=== PATIENT | male | born 1965 | race Caucasian/White ===

== ENCOUNTER 2020-02-23 11:12 | Outpatient (REF) | payer BC, SELFPAY ==
--- NOTE | 2020-02-23 11:20 | XR_ITS ---
EXAMINATION: XR FOOT, LEFT CLINICAL INFORMATION: Pain. COMPARISON: None TECHNIQUE: AP, lateral, and oblique views of the left foot. FINDINGS: No visible acute fracture or dislocation. Suspect anterior spurring of the distal tibia. Small ossification posterior to the talus, could represent an os trigonum versus a loose body. Tarsometatarsal alignment is within normal limits. Moderate Achilles tendon insertional enthesopathy. Small plantar calcaneal spur. Ossicle adjacent to the cuboid XR/XR foot LT min 3V IMPRESSION: No evidence of acute fracture. Degenerative changes, as detailed above.
[2020-02-23 14:08] LABS: Hemoglobin 15.7 g/dl (14.0-18.0)
[2020-02-23 15:29] LABS: Alanine Aminotransferase 52 U/L (0-40); Albumin Level 4.2 g/dL (3.5-5.0); Alkaline Phosphatase 62 U/L (39-117); Anion Gap 11 (12-20); Aspartate Amino Transferase 33 U/L (5-37); Bilirubin Total 1.4 mg/dL (0.0-1.0); Blood Urea Nitrogen 12 mg/dL (9-16); Calcium 8.6 mg/dL (8.4-10.2); Carbon Dioxide 28 mmol/L (22-29); Chloride 102 mmol/L (96-108); Cholesterol 204 mg/dL; Estimated Glomerular Filt Rate > 60; Glucose Fasting 89 mg/dL (60-99); HDL Cholesterol 29 mg/dL; LDL Cholesterol Calculated 124 mg/dl; Potassium 3.9 mmol/l (3.3-5.1); Sodium 137 mmol/L (135-145); Total Protein 7.1 g/dL (6.5-8.0); Triglycerides 257 mg/dL
[2020-02-23 15:31] LABS: Alanine Aminotransferase 52 U/L (0-40); Albumin Level 4.2 g/dL (3.5-5.0); Alkaline Phosphatase 61 U/L (39-117); Aspartate Amino Transferase 34 U/L (5-37); Bilirubin Direct 0.4 mg/dL (0.0-0.5); Bilirubin Total 1.3 mg/dL (0.0-1.0); Total Protein 7.1 g/dL (6.5-8.0)
[2020-02-23 15:56] LABS: TSH reflex Free T4 1.88 mIU/mL (0.32-4.0)
[2020-02-23 16:49] LABS: Prostate Specific Antigen Scr 0.59 ng/mL (<0.05-4.0)
[2020-02-25 03:26] LABS: Sex Hormone Binding Globulin 18 nmol/L (10-50)
[2020-02-25 21:22] LABS: Follicle Stimulating Hormone 5.4 mIU/mL (1.6-8.0); Lutenizing Hormone 4.7 mIU/mL (1.5-9.3)
[2020-02-29 19:08] LABS: Estrogen 237.9 pg/mL (60-190)
[2020-02-29 19:09] LABS: Testosterone, Free 35.4 pg/mL (35.0-155.0); Testosterone, Total 213 ng/dL (250-1100)
[2020-03-02 06:11] LABS: Testosterone-Albumin 4.1 g/dL (3.6-5.1); Testosterone-Bioavailable 57.3 ng/dL (110.0-575.0); Testosterone-Free 30.5 pg/mL (46.0-224.0); Testosterone-SHBG 17 nmol/L (10-50); Testosterone-Total 151 ng/dL (250-1100)
[2020-03-02 22:57] LABS: Estradiol Free 0.46 pg/mL; Estradiol, Ultrasensitive 20 pg/mL
== END 2020-02-23 11:13 | disposition home or self-care (01) ==
LOC: HO.HMGCLDS 11:12
PROVIDERS: Absent Provider Nurse Practitioner Family; PCP Nurse Practitioner Family; Visit Provider Internal Medicine Endocrinology, Diabetes & Metabolism
DX: E23.0 Hypopituitarism (principal); M79.672 Pain in left foot
CPT/HCPCS: 36415; 73630; 80053; 80061; 80076; 82248; 82670; 82672; 83001; 83002; 84153; 84270; 84402; 84403; 84443; 85014; 85018

== ENCOUNTER 2020-03-07 09:10 | Outpatient (REF) | payer BC, SELFPAY | END 2020-03-07 09:11 | disposition home or self-care (01) | LOC: HO.HMGCX 09:10 | PROVIDERS: PCP Nurse Practitioner Family; Visit Provider Nurse Practitioner Family | DX: Z13.89 Encounter for screening for other disorder (principal) ==

== ENCOUNTER → 2020-03-15 07:43 | Outpatient (BNVA) | payer BC, SELFPAY | PROVIDERS: PCP Nurse Practitioner Family; Visit Provider Internal Medicine Endocrinology, Diabetes & Metabolism | DX: Z13.89 Encounter for screening for other disorder (principal) ==

== ENCOUNTER 2020-03-18 06:03 | Outpatient (REF) | payer BC, SELFPAY ==
[2020-03-18 11:45] LABS: Blood Urea Nitrogen 14 mg/dL (9-16); Estimated Glomerular Filt Rate > 60
[2020-03-18 12:22] LABS: HBS Num1 1.71 mIU/mL (0-7.99); HBc Num1 0.08 S/CO (0.00-0.79); HBsAGNum1 0.32 S/CO (0.00-0.99); Hepatitis A Antibody IgM 0.24 Index (0-0.79); Hepatitis B Core Antibody Nonreactive (Nonreactive); Hepatitis B Surface Antigen Negative (Negative); ~HepC Num1 0.08 S/CO (0.00-0.79); ~Hepatitis A Antibody IgM Nonreactive (Nonreactive); ~Hepatitis B Surface Antibody NONREACTIVE (Nonreactive); ~Hepatitis C Antibody Nonreactive (Nonreactive)
[2020-03-25 22:27] LABS: Estradiol Free 0.41 pg/mL; Estradiol, Ultrasensitive 18 pg/mL
== END 2020-03-18 06:04 | disposition home or self-care (01) ==
LOC: HO.HMGCLDS 06:03
PROVIDERS: PCP Nurse Practitioner Family; Visit Provider Internal Medicine Endocrinology, Diabetes & Metabolism
DX: R74.8 Abnormal levels of other serum enzymes (principal); E23.0 Hypopituitarism
CPT/HCPCS: 82565; 82670; 82672; 84520; 86704; 86706; 86709; 86803; 87340

== ENCOUNTER 2020-03-21 07:50 | Outpatient (REF) | payer BC, SELFPAY ==
--- NOTE | 2020-03-21 07:49 | MR_ITS ---
EXAMINATION: MR BRAIN WITHOUT AND WITH CONTRAST CLINICAL INFORMATION: Follow-up questionable 6 mm pituitary adenoma. COMPARISON: MRI dated 06/25/2018. TECHNIQUE: Multiplanar, multisequential imaging was obtained without and with intravenous administration of contrast. Intravenous contrast: Gadavist 5 mL. FINDINGS: Appearance of the pituitary gland remains stable. Enhancing soft tissue in the posterior sella remains unchanged. The infundibulum is midline. The cavernous sinuses opacify symmetrically. The internal carotid artery flow voids are maintained. A small pineal cyst is stable. No diffusion abnormalities are identified to suggest an acute or subacute infarct. The ventricles are normal in size. No mass effect or midline shift is seen. A subcentimeter focus of signal change in the right parietal white No extra-axial fluid collections are noted. The brainstem and cerebellum are normal. On postcontrast imaging, there is no abnormal parenchymal or leptomeningeal enhancement. The craniovertebral junction, marrow signal, and midline structures are normal. The mastoid air cells and paranasal sinuses are well aerated. MR/MR head/brain wo/w con IMPRESSION: Stable appearance of the pituitary gland compared to previous imaging. It is indeterminate as to whether enhancing tissue posterior to what is perceived to represent the pituitary bright spot represents normal glandular tissue versus a microadenoma.
== END 2020-03-21 07:51 | disposition home or self-care (01) ==
LOC: HO.MRI 07:50
PROVIDERS: Visit Provider Internal Medicine Endocrinology, Diabetes & Metabolism
DX: E23.0 Hypopituitarism (principal)
CPT/HCPCS: 70553; A9585

== ENCOUNTER 2020-03-22 08:55 | Outpatient (REF) | payer BC, SELFPAY ==
--- NOTE | 2020-03-22 08:58 | US_ITS ---
EXAMINATION: US ABDOMEN COMPLETE CLINICAL INFORMATION: Abnormal levels of other serum enzymes. COMPARISON: None TECHNIQUE: Real-time imaging of the abdominal viscera. FINDINGS: PANCREAS: The head and the body of the pancreas are homogeneous in echotexture. The tail is obscured by overlying gas. ABDOMINAL AORTA: The proximal, mid, and distal segments are normal in caliber. INFERIOR VENA CAVA: Visualized portions are normal. LIVER: The liver has increased echogenicity. The liver is normal in size. The liver contour is normal. No focal hepatic lesion. There is no intrahepatic biliary duct dilatation seen. GALLBLADDER: The gallbladder is physiologically distended without evidence of stones, polyps, wall thickening or pericholecystic fluid. There is echogenic sludge noted. COMMON BILE DUCT: Normal in caliber measuring 0.23 cm in diameter. RIGHT KIDNEY: Normal. No hydronephrosis. No renal calculi or focal parenchymal lesions. The kidney measures 11.7 cm in maximum dimension. LEFT KIDNEY: Normal. No hydronephrosis. No renal calculi or focal parenchymal lesions. The kidney measures 12.0 cm in maximum dimension. SPLEEN: Normal. The spleen measures 11.9 cm in maximum dimension. FREE FLUID: None. US/US abdomen complete IMPRESSION: Hepatic steatosis without focal lesion. Echogenic gallbladder sludge. The rest of the abdominal ultrasound is unremarkable.
== END 2020-03-22 08:56 | disposition home or self-care (01) ==
LOC: HO.HMGCX 08:55
PROVIDERS: PCP Nurse Practitioner Family; Visit Provider Nurse Practitioner Family
DX: R74.8 Abnormal levels of other serum enzymes (principal)
CPT/HCPCS: 76700

== ENCOUNTER 2020-05-07 07:43 | Outpatient (REF) | payer BC, SELFPAY ==
[2020-05-07 08:58] LABS: Alanine Aminotransferase 34 U/L (0-40); Albumin Level 4.4 g/dL (3.5-5.0); Alkaline Phosphatase 59 U/L (39-117); Aspartate Amino Transferase 24 U/L (5-37); Bilirubin Direct 0.4 mg/dL (0.0-0.5); Bilirubin Total 1.3 mg/dL (0.0-1.0); Cholesterol 166 mg/dL; HDL Cholesterol 31 mg/dL; LDL Cholesterol Calculated 105 mg/dl; Triglycerides 152 mg/dL
[2020-05-07 09:03] LABS: Bilirubin Direct 0.4 mg/dL (0.0-0.5)
== END 2020-05-07 07:44 | disposition home or self-care (01) ==
LOC: HO.LAB 07:43
PROVIDERS: PCP Nurse Practitioner Family; Visit Provider Nurse Practitioner Family
DX: R17 Unspecified jaundice (principal); E78.5 Hyperlipidemia, unspecified
CPT/HCPCS: 36415; 80061; 80076; 82248

== ENCOUNTER → 2020-08-12 07:26 | Outpatient (BNVA) | payer BC, SELFPAY | PROVIDERS: PCP Nurse Practitioner Family; Visit Provider Internal Medicine Endocrinology, Diabetes & Metabolism ==

== ENCOUNTER 2020-08-12 07:57 | Outpatient (REF) | payer BC, SELFPAY ==
[2020-08-12 10:26] LABS: Hemoglobin 16.4 g/dl (14.0-18.0)
[2020-08-12 10:53] LABS: Cholesterol 185 mg/dL; HDL Cholesterol 28 mg/dL; LDL Cholesterol Calculated 125 mg/dl; Triglycerides 163 mg/dL
[2020-08-12 11:16] LABS: PSA,Total (Free>4and<10) 0.54 ng/mL (0.00-4.00)
[2020-08-13 05:36] LABS: Sex Hormone Binding Globulin 14 nmol/L (10-50)
[2020-08-17 19:31] LABS: Testosterone-Albumin 4.4 g/dL (3.6-5.1); Testosterone-Bioavailable 150.7 ng/dL (110.0-575.0); Testosterone-Free 74.9 pg/mL (46.0-224.0); Testosterone-SHBG 15 nmol/L (10-50); Testosterone-Total 329 ng/dL (250-1100)
[2020-08-23 15:47] LABS: Testosterone, Free 99.6 pg/mL (35.0-155.0); Testosterone, Total 431 ng/dL (250-1100)
== END 2020-08-12 07:58 | disposition home or self-care (01) ==
LOC: HO.10HDL 07:57
PROVIDERS: Visit Provider Internal Medicine Endocrinology, Diabetes & Metabolism
DX: E23.0 Hypopituitarism (principal)
CPT/HCPCS: 36415; 80061; 84153; 84270; 84402; 84403; 85014; 85018

== ENCOUNTER → 2021-07-06 09:59 | Outpatient (BNVA) | payer BC, SELFPAY | PROVIDERS: PCP Nurse Practitioner Family; Referring Provider Nurse Practitioner Family; Visit Provider Physician Assistant | DX: K52.9 Noninfective gastroenteritis and colitis, unspecified (principal); Z12.11 Encounter for screening for malignant neoplasm of colon; Z79.899 Other long term (current) drug therapy | CPT/HCPCS: 99202 ==

== ENCOUNTER 2021-07-28 06:22 | Outpatient (REF) | payer BC, SELFPAY ==
[2021-07-28 11:41] LABS: Appearance Urine CLEAR; Color Urine YELLOW; Glucose Urine UA NEG (NEG); Leukocyte Esterase Urine NEG (NEG); Nitrite Urine NEG (NEG); Urine Blood NEG (NEG); Urine Ketones NEG (NEG); Urine Protein NEG (NEG-TRACE)
[2021-07-28 11:53] LABS: Prostate Specific Antigen Scr 0.58 ng/mL (<0.05-4.0); TSH reflex Free T4 2.73 uIU/mL (0.32-4.0)
[2021-07-28 12:01] LABS: Alanine Aminotransferase 37 U/L (0-40); Albumin Level 3.9 g/dL (3.5-5.0); Alkaline Phosphatase 53 U/L (39-117); Anion Gap 10 (12-20); Aspartate Amino Transferase 25 U/L (5-37); Bilirubin Total 1.1 mg/dL (0.0-1.0); Blood Urea Nitrogen 13 mg/dL (9-16); C Reactive Protein 0.05 mg/dL (< or = 0.50); Calcium 8.9 mg/dL (8.4-10.2); Carbon Dioxide 27 mmol/L (22-29); Chloride 106 mmol/L (96-108); Cholesterol 223 mg/dL; Estimated Glomerular Filt Rate > 60; Glucose Fasting 107 mg/dL (60-99); HDL Cholesterol 29 mg/dL; LDL Cholesterol Calculated 139 mg/dl; Potassium 3.9 mmol/L (3.3-5.1); Sodium 139 mmol/L (135-145); Total Protein 6.9 g/dL (6.5-8.0); Triglycerides 275 mg/dL
[2021-07-28 12:07] LABS: Erythrocyte Sedimentation Rate 2 MM/HR (0-15)
== END 2021-07-28 06:23 | disposition home or self-care (01) ==
LOC: HO.HMGCLDS 06:22
PROVIDERS: PCP Nurse Practitioner Family; Visit Provider Physician Assistant
DX: Z00.00 Encounter for general adult medical examination without abnormal findings (principal); Z12.5 Encounter for screening for malignant neoplasm of prostate; K52.9 Noninfective gastroenteritis and colitis, unspecified
CPT/HCPCS: 36415; 80053; 80061; 81003; 84153; 84443; 85652; 86140

== ENCOUNTER 2021-10-06 06:10 | Outpatient (REF) | payer BC, SELFPAY ==
[2021-10-06 11:21] LABS: Hematocrit 47.6 % (42.0-52.0); Hemoglobin 15.6 g/dl (14.0-18.0)
[2021-10-06 11:44] LABS: Cholesterol 177 mg/dL; HDL Cholesterol 34 mg/dL; LDL Cholesterol Calculated 106 mg/dl; Triglycerides 189 mg/dL
[2021-10-06 11:54] LABS: Prostate Specific Antigen 0.53 ng/mL (<0.05-4.0)
[2021-10-12 21:27] LABS: Testosterone, Free 46.2 pg/mL (35.0-155.0); Testosterone, Total 231 ng/dL (250-1100)
== END 2021-10-06 06:11 | disposition home or self-care (01) ==
LOC: HO.HMGCLDS 06:10
PROVIDERS: PCP Nurse Practitioner Family; Visit Provider Internal Medicine Endocrinology, Diabetes & Metabolism
DX: E23.0 Hypopituitarism (principal); E78.1 Pure hyperglyceridemia; E78.5 Hyperlipidemia, unspecified; Z12.5 Encounter for screening for malignant neoplasm of prostate
CPT/HCPCS: 36415; 80061; 84153; 84402; 84403; 85014; 85018

== ENCOUNTER → 2022-04-02 09:08 | Outpatient (REF) | payer BC, SELFPAY | LOC: HO.SL 09:08 | PROVIDERS: PCP Nurse Practitioner Family; Visit Provider Nurse Practitioner Family | DX: G47.33 Obstructive sleep apnea (adult) (pediatric) (principal); R06.83 Snoring; G47.19 Other hypersomnia; I10 Essential (primary) hypertension | CPT/HCPCS: 95806 ==

== ENCOUNTER 2022-05-01 09:28 | Day surgery (SDC) | payer BC, SELFPAY ==
[2022-04-26 10:40] VITALS: BMI 33.1
--- NOTE | 2022-04-30 13:12 | HO.ANESPROP2 ---
Documented by User: Lyn Fulton NP 04/30/22 13:12 HPI - Anesthesia Eval Consult details Narrative: 57yo M for Colonoscopy PMFSH Active Problems Active Problems: All Active Problems (Updated 04/26/22 @ 10:36 by Faye Peter RN) Physical exam (Acute) Intractable left heel pain (Acute) Elevated bilirubin (Acute) Elevated liver enzymes (Acute) Screening for colon cancer (Acute) Screening PSA (prostate specific antigen) (Acute) Obesity (Acute) Snores (Acute) Excessive daytime sleepiness (Acute) Witnessed episode of apnea (Acute) Dyslipidemia (Acute) Colitis (Acute) HTN (hypertension) (Acute) Hypertriglyceridemia (Acute) Hypogonadotropic hypogonadism (Acute) Past Medical History Medical History Arthritis Colitis Diverticulitis Dyslipidemia Hemochromatosis History of deviated nasal septum HTN (hypertension) Hypertriglyceridemia Hypogonadotropic hypogonadism Infectious and parasitic disease Leukopenia Microhematuria Neutropenia Plantar fascial fibromatosis of left foot Sleep apnea Family History Family History Father Pneumonia Mother Lung cancer Sister Breast cancer Brother No problems noted. Son No problems noted. Son No problems noted. Surgical History Surgical History History of bowel resection History of circumcision Hx of colonoscopy Hx of vasectomy Social History Social History Housing: House Alcohol intake: current Alcohol intake frequency: does not drink Patient Tobacco Use Status: Never used Tobacco e-Cigarette/Vaping Use: Never Used Use of substances other than those prescribed or required for medical reasons: No Are you DNR?: No Advance Directives: No Advance Directives Information Provided: Yes service: No Current occupational status: employed Cognitive needs: No Hearing needs: No Vision needs: No Meds Allergies Allergy/AdvReac Type Severity Reaction Status Date / Time No Known Allergies Allergy Verified 03/06/22 15:08 Exam Exam Date and Time: April 30, 2022 1312 Height,Weight and Vital Signs: Height 6 ft 3 in Weight 120.202 kg Assessment and Plan Assessment Anesthesia Assessment: Chart Reviewed Documented by User: Sallie Shahid MD 05/01/22 11:15 PMF Active Problems Active Problems: All Active Problems (Updated 04/26/22 @ 10:36 by Faye Peter RN) Physical exam (Acute) Intractable left heel pain (Acute) Elevated bilirubin (Acute) Elevated liver enzymes (Acute) Screening for colon cancer (Acute) Screening PSA (prostate specific antigen) (Acute) Obesity (Acute) Snores (Acute) Excessive daytime sleepiness (Acute) Witnessed episode of apnea (Acute) Dyslipidemia (Acute) Colitis (Acute) HTN (hypertension) (Acute) Hypertriglyceridemia (Acute) Hypogonadotropic hypogonadism (Acute) DEVAN- just diagnosed. No CPAP yet Past Medical History Medical History Arthritis Colitis Diverticulitis Dyslipidemia Hemochromatosis History of deviated nasal septum HTN (hypertension) Hypertriglyceridemia Hypogonadotropic hypogonadism Infectious and parasitic disease Leukopenia Microhematuria Neutropenia Plantar fascial fibromatosis of left foot Sleep apnea Family History Family History Father Pneumonia Mother Lung cancer Sister Breast cancer Brother No problems noted. Son No problems noted. Son No problems noted. Family history of problems with anesthesia: No Surgical History Surgical History History of bowel resection History of circumcision Hx of colonoscopy Hx of vasectomy History of Problems with Anesthesia: No Social History Social History Housing: House Alcohol intake: current Alcohol intake frequency: does not drink Patient Tobacco Use Status: Never used Tobacco e-Cigarette/Vaping Use: Never Used Use of substances other than those prescribed or required for medical reasons: No Are you DNR?: No Advance Directives: No Advance Directives Information Provided: Yes service: No Current occupational status: employed Cognitive needs: No Hearing needs: No Vision needs: No Meds Allergies Allergy/AdvReac Type Severity Reaction Status Date / Time No Known Allergies Allergy Verified 03/06/22 15:08 Exam Height,Weight and Vital Signs: Height 6 ft 3 in Weight 120.202 kg Vital Signs Temp Pulse Resp BP Pulse Ox O2 Del Method 05/01/22 10:23 98.5 F 77 16 150/91 H 95 Room Air Airway Mallampati Class: II TM Dist: >3cm Neck ROM: Full Loose/Missing/Broken Teeth: No (Denies broken, loose, missing teeth) Heart: RRR Lungs: CTAB Assessment and Plan Assessment Anesthesia Assessment: Anesthesia Plan Discussed Final Anesthetic Review Family History of Problems with Anesthesia: No History of Problems with Anesthesia: No NPO: Yes ASA Class: III Final Preanesthetic Review: No Changes in Pt Med Stat, Meds/Allgs Chart Reviewed, Consent Obtained/Reviewed and Anes Risks/Benef Reviewed Patient Risk: Intermediate Procedure Risk: Low Assessment/Block/Sedation in SS: Assess/Block/Sedation-SS Anesthetic Plan Anesthetic Plan: MAC: Disposition: Standard PACU
[2022-05-01 10:23] VITALS: BP 150/91; PULSE 77; RESP 16; TEMP 36.9; O2SAT 95
[2022-05-01] MEDS: Lactated Ringers 1,000 ML 100 ML IVCONT (10:26)
--- NOTE | 2022-05-01 10:47 | MHC.SHP ---
Pre-Procedural Eval Section A Date of Service: 05/01/22 Section B Chief Complaint: screening Relevant Family History (Specify if Yes): No Relevant Social History: None Present Medications: see Short Stay Collaborative assessment Medical History: Significant History (Arthritis Colitis Colitis Diverticulitis Dyslipidemia Hemochromatosis History of deviated nasal septum HTN (hypertension) Hypertriglyceridemia Hypogonadism Hypogonadotropic hypogonadism Infectious and parasitic disease Leukopenia Microhematuria Neutropenia Plantar fascial fibromatosis of left foot) History of Previous Operations: Relevant previous surgery/procedure and date(s) (History of bowel resection History of circumcision Hx of colonoscopy) Allergies: Allergies Allergy/AdvReac Type Severity Reaction Status Date / Time No Known Allergies Allergy Verified 03/06/22 15:08 Review of Systems Sugical H&P ROS: Negative: Constitution, Cardiovascular, Respiratory, Neurological, Psychiatric, Hem-Onc, Allergic/Immunologic, Gastrointestinal, Genitourinary, Musculoskeletal, Integumentary, Endocrine and Eyes/Ears/Nose/Throat Exam Surgical H&P Exam: Normal: HEENT, Normal: Heart, Normal: Lungs, Normal: Extremities, Normal: Abdomen, Normal: Skin and Normal: Neurological Plan Diagnosis/Plan: Unchanged I have reviewed the history and physical and performed a pertinent physical examination on my patient. No changes have occurred unless specified. Time Spent With Patient Time: Total time managing care of this patient today ____ minutes.
--- NOTE | 2022-05-01 10:48 | W.PM.OPN ---
Operative Note Operative Note Date of Service: 05/01/22 Narrative: Operative Information Procedure Description: Colonoscopy Indication: screening Anesthesia: MAC COLONOSCOPY Instrument: Olympus variable stiffness adult scope 190L Colonoscopy Monitoring: Vital signs and clinical assessment, continuous EKG monitoring, Pulse oximetry, Carbon Dioxide monitoring and blood pressure monitoring were done throughout the procedure. Colon withdrawal time was 9 minutes. Procedure: The patient was placed in the left lateral decubitis position and pre-procedure medications were administered. After a digital rectal examination of the ano-rectum, the video colonoscope was inserted into the rectum and advanced through the colon to the cecum/TI. The colonoscope was slowly withdrawn in a retrograde panoramic fashion and the colon mucosa was carefully examined including a retroflexed view of the rectum. Findings and interventions are described below. Procedure Difficulty: easy Findings: Terminal Ileum-normal Cecum:normal Ascending Colon: normal Transverse Colon -normal Descending Colon:normal Sigmoid Colon: anastomosis noted, many wide mouthed and small diverticula seen Rectum: Retroflexion with small internal hemorrhoids, grade I Anorectum - normal Colon preparation: [place] Bowel Preparation Scale Right colon; 2 Transverse colon: 3 Left colon; 3 (0 = Unprepared colon segment with mucosa not seen due to solid stool that cannot be cleared. 1 = Portion of mucosa of the colon segment seen, but other areas of the colon segment not well seen due to staining, residual stool and/or opaque liquid. 2 = Minor amount of residual staining, small fragments of stool and/or opaque liquid, but mucosa of colon segment seen well. 3 = Entire mucosa of colon segment seen well with no residual staining, small fragments of stool or opaque liquid) Impression and Post Procedure Diagnosis: internal hemorrhoids diverticular disease Plan: High fiber diet leaflet Avoid straining at stool, epsom salts and sitz bath, anusol supps or cream Repeat Colonoscopy in 10 years or earlier if clinically indicated Above findings were reviewed with the patient and relevant handouts were provided if indicated.
[2022-05-01 11:19] VITALS: BP 132/84; PULSE 77; RESP 18; TEMP 36.7; O2SAT 98
[2022-05-01 11:34] VITALS: BP 145/94; PULSE 67; RESP 18; TEMP 36.7; O2SAT 95
== END 2022-05-01 12:15 | disposition home or self-care (01) ==
PROVIDERS: PCP Nurse Practitioner Family; Visit Provider Internal Medicine Gastroenterology
PROC: 0DJD8ZZ Inspection of Lower Intestinal Tract, Via Natural or Artificial Opening Endoscopic (ICD-10-PCS; CPT 45378; principal; 2022-05-01 10:50)
DX: Z12.11 Encounter for screening for malignant neoplasm of colon (principal); K57.30 Diverticulosis of large intestine without perforation or abscess without bleeding; K64.0 First degree hemorrhoids; Z87.19 Personal history of other diseases of the digestive system; Z90.49 Acquired absence of other specified parts of digestive tract; Z98.0 Intestinal bypass and anastomosis status; K52.9 Noninfective gastroenteritis and colitis, unspecified; D70.9 Neutropenia, unspecified; E83.119 Hemochromatosis, unspecified; G47.33 Obstructive sleep apnea (adult) (pediatric); I10 Essential (primary) hypertension; E78.1 Pure hyperglyceridemia; E78.5 Hyperlipidemia, unspecified; Z79.899 Other long term (current) drug therapy
CPT/HCPCS: 45378

== ENCOUNTER → 2022-05-31 07:30 | Outpatient (BNVA) | payer BC, SELFPAY | PROVIDERS: PCP Nurse Practitioner Family; Referring Provider Nurse Practitioner Family; Visit Provider Physician Assistant | DX: Z13.89 Encounter for screening for other disorder (principal) ==

== ENCOUNTER 2023-02-16 09:47 | Outpatient (REF) | payer BC, SELFPAY ==
[2023-02-16 10:00] LABS: MANUAL DIFF FLAG NO
[2023-02-16 11:13] LABS: Basophils Percent Auto 0.9 % (0-2); Eosinophils Absolute Auto 0.2 X10*3/uL (0.0-0.4); Eosinophils Percent Auto 4.2 % (0-4); Hematocrit 47.8 % (42.0-52.0); Hemoglobin 16.1 g/dl (14.0-18.0); Imm Gran Abs Auto 0.02 X10*3/uL (0.00-0.03); Imm Gran Pct Auto 0.4 % (0.0-0.4); Lymphocytes Absolute Auto 1.6 X10*3/uL (1.2-4.9); Lymphocytes Percent Auto 35.5 % (20-40); Mean Corpuscular HGB Conc 33.7 g/dl (31.0-36.0); Mean Corpuscular Volume 91.9 fL (80.0-98.0); Mean Platelet Volume 9.2 fL (9.4-12.4); Monocytes Absolute Auto 0.5 X10*3/uL (0.1-1.2); Monocytes Percent Auto 10.8 % (2-11); Neutrophils Absolute Auto 2.2 x10*3/uL (2.0-8.3); Neutrophils Percent Auto 48.2 % (45-73); Platelet Count 264 X10*3/uL (160-400); Red Cell Distribution Width 11.9 % (11.0-16.0); White Blood Count 4.5 X10*3/uL (4.8-10.8)
[2023-02-16 11:19] LABS: Appearance Urine Clear; Color Urine Yellow; Glucose Urine UA Negative (Negative); Leukocyte Esterase Urine Negative (Negative); Nitrite Urine Negative (Negative); PH 6.5 (5.0-9.0); Urine Blood Negative (Negative); Urine Ketones Negative (Negative); Urine Protein Negative (Neg-Trace)
[2023-02-16 12:05] LABS: Alanine Aminotransferase 36 U/L (0-40); Albumin Level 4.1 g/dL (3.5-5.0); Alkaline Phosphatase 55 U/L (39-117); Anion Gap 11 (12-20); Aspartate Amino Transferase 28 U/L (5-37); Bilirubin Total 1.7 mg/dL (0.0-1.0); Blood Urea Nitrogen 14 mg/dL (9-16); Carbon Dioxide 29 mmol/L (22-29); Chloride 104 mmol/L (96-108); Cholesterol 168 mg/dL (<200); Estimated Glomerular Filt Rate > 60; Glucose Fasting 81 mg/dL (60-99); HDL Cholesterol 31 mg/dL (>40); LDL Cholesterol Calculated 98 mg/dL (<100); Potassium 3.5 mmol/L (3.3-5.1); Sodium 140 mmol/L (135-145); Total Protein 7.1 g/dL (6.5-8.0); Triglycerides 196 mg/dL (<150)
[2023-02-16 12:12] LABS: Prostate Specific Antigen 0.58 ng/mL (<0.05-4.0); TSH reflex Free T4 1.41 uIU/mL (0.32-4.0)
== END 2023-02-16 09:48 | disposition home or self-care (01) ==
LOC: HO.LAB 09:47
PROVIDERS: PCP Nurse Practitioner Family; Visit Provider Nurse Practitioner Family
DX: Z12.5 Encounter for screening for malignant neoplasm of prostate (principal); E78.5 Hyperlipidemia, unspecified; R74.8 Abnormal levels of other serum enzymes; R17 Unspecified jaundice; I10 Essential (primary) hypertension; E78.1 Pure hyperglyceridemia; E23.0 Hypopituitarism
CPT/HCPCS: 36415; 80053; 80061; 81003; 84153; 84443; 85025

== ENCOUNTER 2023-02-19 14:00 | Outpatient (AMB) | payer BC, SELFPAY ==
--- NOTE | 2023-02-19 14:03 | A.OFFVIS_ITS ---
Intake Vital Signs 02/19/23 14:05 Weight 277 lb BP 126/88 Blood Pressure Location Lt brachial Position Sitting Pulse 76 Pulse Source Pulse Oximeter Pulse Oximetry (%) 97 Oxygen Delivery Method Room Air Intake Visit Reasons: Hypertension Allergies No Known Allergies Allergy (Verified 02/19/23 15:18) Medication List - Last Reconciled 02/19/23 by ANNMARIE Sapp-MARSHAL lisinopril 40 mg PO DAILY 90 days omega-3 fatty acids 1,000 mg PO BID 30 days rosuvastatin 20 mg PO DAILY 90 days safety needles (BD Eclipse Luer-Fabiana) As directed sildenafil 50 mg PO DAILY PRN 30 days syringe with needle, safety (BD Integra Syringe) As directed Do you need a note to return to daycare/school/sports/work: No HPI Hypertension HPI Details HTN: Blood pressure is stable, managed with lisinopril 40mg. Denies chest pain, shortness of breath, headache, dizziness, and blurred vision. Pt's bilirubin was noted to be elevated. Denies any abdominal or N/V. Will repeat labs. Hx of hemochromatosis, will repeat labs. 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 Son No problems noted. Son No problems noted. Social History Housing: House Alcohol intake: current Alcohol intake frequency: does not drink Patient Tobacco Use Status: Never used Tobacco e-Cigarette/Vaping Use: Never Used service: No Current occupational status: employed Cognitive needs: No Hearing needs: No Vision needs: No Review of Systems Const Reports as per HPI Physical Exam Vital Signs: Last Vital Signs Pulse 76 11/07/23 14:05 BP 126/88 02/19/23 14:05 Pulse Ox 97 02/19/23 14:05 Oxygen Delivery Method Room Air 02/19/23 14:05 Const General: cooperative Orientation/consciousness: patient oriented x3 Neuro General: patient oriented x3 Psych Appearance: grossly normal Mental Status: mental status grossly normal Speech and movement: Normal speech and movement present Affect: normal affect Attitude: cooperative Thought process: Normal thought process present Thought content: Normal thought content present Insight: Good insight present (Psych) Judgement: Good judgement present (Psych) Assessment & Plan Assessment & Plan (1) Elevated bilirubin: Code(s): R17 - Unspecified jaundice Plan: repeat (2) HTN (hypertension): Code(s): I10 - Essential (primary) hypertension Plan: take BP at home (3) Hemochromatosis: Code(s): E83.119 - Hemochromatosis, unspecified Plan: labs Plan The patient agreed to the use of a medical records director for this encounter. Scribed for JOHANA Holland by clemencia Escobar scribe, on 02/19/2023 at 14:25 EST. Orders: Orders Bilirubin Direct Today R17 - Unspecified jaundice Bilirubin Total Today R17 - Unspecified jaundice Ferritin Today E83.119 - Hemochromatosis, unspecified IRON PROFILE Today E83.119 - Hemochromatosis, unspecified Medications: Refilled sildenafil administer 30 minutes to 4 hours before activity 50 mg PO DAILY 30 days PRN 30 tabs 4RF sexual activity Coding Level of Care Code Est Pt Level 3 (00959) Diagnoses Elevated bilirubin R17 HTN (hypertension) I10 Hemochromatosis E83.119
[2023-02-19 14:05] VITALS: BP 126/88; PULSE 76; O2SAT 97
== END 2023-02-19 17:01 | disposition home or self-care (01) ==
PROVIDERS: PCP Nurse Practitioner Family; Visit Provider Nurse Practitioner Family
DX: R17 Unspecified jaundice (principal); I10 Essential (primary) hypertension; E83.119 Hemochromatosis, unspecified
CPT/HCPCS: 99213

== ENCOUNTER 2023-03-02 10:44 | Outpatient (REF) | payer BC, SELFPAY ==
[2023-03-02 11:52] LABS: Bilirubin Direct 0.3 mg/dL (0.0-0.5); Bilirubin Total 1.2 mg/dL (0.0-1.0); Iron 136 mcg/dL (45-160); Percent Iron Saturation 47 % (15-50); Total Iron Binding Capacity 290 mcg/dL (228-428); Unsaturated Iron Binding 154 ug/dL
[2023-03-02 11:56] LABS: Ferritin 271 ng/mL (20-250)
== END 2023-03-02 10:45 | disposition home or self-care (01) ==
LOC: HO.LAB 10:44
PROVIDERS: PCP Nurse Practitioner Family; Visit Provider Nurse Practitioner Family
DX: R17 Unspecified jaundice (principal); E83.119 Hemochromatosis, unspecified
CPT/HCPCS: 36415; 82247; 82248; 82728; 83540

== ENCOUNTER 2023-07-01 13:34 | Outpatient (AMB) | payer BC, SELFPAY ==
[2023-07-01 13:36] VITALS: BP 138/80; PULSE 80; O2SAT 98; BMI 35.6
--- NOTE | 2023-07-01 13:36 | A.OFFPC_ITS ---
Vital Signs 07/01/23 13:36 Height 6 ft 3 in Weight 285 lb BMI 35.6 BP 138/80 Blood Pressure Location Lt brachial Position Sitting Pulse 80 Pulse Source Pulse Oximeter Pulse Oximetry (%) 98 Oxygen Delivery Method Room Air Intake Visit Reasons: Annual PE/Overdue last PE 2021 Intake Note: pt is here for annual exam Data Architect Required: No Accompanied by: Self / Same As Patient Allergies No Known Allergies Allergy (Verified 07/01/23 13:36) Tobacco use date assessed: 07/01/23 Dental Screening Dental Screen Date: 07/01/23 Did you have a dental visit in the last 12 months?: Yes Did you have a dental problem in the last 6 months where you did not have access to dental care?: No Was dental information given to patient?: Patient has dentist HPI Annual PE/Overdue last PE 2021 HPI Details Pt is here for a PE. Labs have already been ordered, encouraged pt to have these drawn. Colon screen is up to date. PSA is up to date. Denies dribbling with urination, weak stream, and frequent nocturia. 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 Son No problems noted. Son No problems noted. Social History Housing: House Alcohol intake: current Alcohol intake frequency: does not drink Patient Tobacco Use Status: Never used Tobacco e-Cigarette/Vaping Use: Never Used service: No Current occupational status: employed Cognitive needs: No Hearing needs: No Vision needs: No Questionnaire Thrive Questionnaire Date Thrive assessed: 06/12/21 AUDIT C Alcohol Use Questionnaire (AUDIT-C) 1. How often do you have a drink containing alcohol?: Monthly or less 2. How many drinks containing alcohol do you have on a typical day when you are drinking?: 1 or 2 3. How often do you have six or more drinks on one occasion?: Never Total Score: 1 Score Reviewed/Action Taken: No JG-7 AMB Questionnaire JG-7 Date JG - 7 assessed: 06/12/21 Source: Developed by Drs. Maynor Lee, Josi Joy, Carl Tobin and colleagues, with an educational jessica from [employer]. Review of Systems Const Denies chills and Denies fever(s) Eyes Denies blurry vision ENT Denies vertigo, Denies dizziness and Denies sore throat Card Denies chest pain at rest, Denies chest pain with activity, Denies diaphoresis, Denies dyspnea and Denies dyspnea on exertion Resp Denies cough, Denies dyspnea, Denies dyspnea on exertion and Denies wheezing GI Denies abdominal pain, Denies melena, Denies hematochezia, Denies constipation, Denies diarrhea and Denies loose stools Denies hematuria Musc Denies numbness and Denies tingling Skin/Breast Denies lesions Neuro Denies vertigo, Denies dizziness, Denies numbness and Denies tingling Psych Denies anxiety, Denies depression, Denies homicidal ideation, Denies suicidal ideation and Denies other (substance abuse) Aller/Immun Denies wheezing Physical exam (Primary Care) Vital Signs: Last Vital Signs Pulse 80 07/01/23 13:36 BP 138/80 07/01/23 13:36 Pulse Ox 98 07/01/23 13:36 Oxygen Delivery Method Room Air 07/01/23 13:36 BMI result Body Mass Index 35.6 Tobacco/Smoking Status: Tobacco use Status Tobacco use date assessed 07/01/23 07/01/23 13:37 Patient Tobacco Use Status Never used Tobacco 07/01/23 13:37 e-Cigarette/Vaping Use Never Used 07/01/23 13:37 Thrive Assessment: Date of Thrive Assessment Date Thrive assessed 06/12/21 07/01/23 13:37 Const General: cooperative Nutritional Appearance: obese Orientation/consciousness: patient oriented x3 HENMT Head: Yes normal to inspection, Yes normocephalic and Yes atraumatic Ears: TM's normal bilaterally Eyes General: appearance normal, both eyes and all related structures Alignment and Position: alignment normal and position normal Neck Neck: Yes normal visual inspection and Yes no lymphadenopathy Thyroid: Thyroid normal Resp Effort & Inspection: normal respiratory effort Auscultation: clear to auscultation bilaterally Cardio Rate: regular rate Rhythm: regular rhythm Heart sounds: S1 normal heart sound present, S2 normal heart sound present and no murmurs GI Palpation (GI): Soft to palpation and nontender Auscultation: normal bowel sounds Male General Exam: Yes normal external exam Penis: normal penis Scrotum: scrotum normal, testes descended bilaterally and no inguinal hernias Testes: no testicular mass Skin Rashes: no rashes Neuro General: patient oriented x3, moves all extremities, no focal motor deficits and deep tendon reflexes 2+ bilaterally Romberg Test: Negative Psych Appearance: grossly normal Mental Status: mental status grossly normal Speech and movement: Normal speech and movement present Affect: normal affect Attitude: cooperative Thought process: Normal thought process present Thought content: Normal thought content present Insight: Good insight present (Psych) Judgement: Good judgement present (Psych) Assessment and Plan Assessment & Plan (1) Physical exam: Code(s): Z. - Encounter for general adult medical examination without abnormal findings Plan: previous labs were ordered as well, pt instructed to get all labs that were ordered (remind the sanitation laborer) Plan The patient agreed to the use of a electromedical service engineer for this encounter. Scribed for JOHANA Holland by Yancy Oquendo electromedical service engineer, on 07/01/2023 at 13:45 EST. Orders: Orders UA CC w/rflx Micro + Cult Today Z00. - Encounter for general adult medical examination without abnormal findings Lipid Panel Today Z00. - Encounter for general adult medical examination without abnormal findings TSH reflex Free T4 Today Z00. - Encounter for general adult medical ex amination without abnormal findings Coding Level of Care Code Est Pt Prev Care 40-64y(41488) Diagnoses Physical exam Z00.
== END 2023-07-01 16:34 | disposition home or self-care (01) ==
PROVIDERS: PCP Nurse Practitioner Family; Visit Provider Nurse Practitioner Family
DX: Z00.00 Encounter for general adult medical examination without abnormal findings (principal)
CPT/HCPCS: 99396

== ENCOUNTER 2023-07-18 15:36 | Outpatient (REF) | payer BC, SELFPAY ==
[2023-07-18 15:46] LABS: MANUAL DIFF FLAG NO
[2023-07-18 16:30] LABS: Basophils Absolute Auto 0.1 X10*3/uL (0.0-0.2); Basophils Percent Auto 1.1 % (0-2); Eosinophils Absolute Auto 0.2 X10*3/uL (0.0-0.4); Eosinophils Percent Auto 3.8 % (0-4); Hemoglobin 15.9 g/dl (14.0-18.0); Imm Gran Abs Auto 0.01 X10*3/uL (0.00-0.03); Imm Gran Pct Auto 0.2 % (0.0-0.4); Lymphocytes Absolute Auto 1.7 X10*3/uL (1.2-4.9); Lymphocytes Percent Auto 35.1 % (20-40); Mean Corpuscular HGB Conc 33.1 g/dl (31.0-36.0); Mean Corpuscular Hemoglobin 31.1 pg (27.0-33.0); Mean Corpuscular Volume 93.9 fL (80.0-98.0); Mean Platelet Volume 8.8 fL (9.4-12.4); Monocytes Absolute Auto 0.5 X10*3/uL (0.1-1.2); Monocytes Percent Auto 10.7 % (2-11); Neutrophils Absolute Auto 2.3 x10*3/uL (2.0-8.3); Neutrophils Percent Auto 49.1 % (45-73); Platelet Count 260 X10*3/uL (160-400); Red Blood Count 5.11 X10*6/uL (4.60-5.80); White Blood Count 4.8 X10*3/uL (4.8-10.8)
[2023-07-18 16:31] LABS: Appearance Urine Clear; Color Urine Yellow; Glucose Urine UA Negative (Negative); Leukocyte Esterase Urine Negative (Negative); Nitrite Urine Negative (Negative); UMIC TRIGGER UACC YES; Urine Blood Negative (Negative); Urine Ketones Negative (Negative); Urine Protein 30 (1+) mg/dL (Neg-Trace)
[2023-07-18 16:46] LABS: Bacteria Urine None Seen (None Seen); Hyaline Casts Urine 0-2 /LPF (0-2); RBC Urine 0-2 /HPF (0-2); Squamous Epithelial Cell Urine 0-2 /HPF (0-2); WBC Urine 0-5 /HPF (0-5)
[2023-07-18 17:18] LABS: Alanine Aminotransferase 46 U/L (0-40); Albumin Level 4.3 g/dL (3.5-5.0); Alkaline Phosphatase 58 U/L (39-117); Anion Gap 9 (12-20); Aspartate Amino Transferase 28 U/L (5-37); Bilirubin Total 1.2 mg/dL (0.0-1.0); Blood Urea Nitrogen 12 mg/dL (9-16); Calcium 9.3 mg/dL (8.4-10.2); Carbon Dioxide 30 mmol/L (22-29); Chloride 104 mmol/L (96-108); Cholesterol 165 mg/dL (<200); Estimated Glomerular Filt Rate > 60; Glucose Random 81 mg/dL (60-115); HDL Cholesterol 31 mg/dL (>40); Iron 116 mcg/dL (45-160); LDL Cholesterol Calculated 78 mg/dL (<100); Percent Iron Saturation 38 % (15-50); Potassium 3.8 mmol/L (3.3-5.1); Sodium 139 mmol/L (135-145); Total Iron Binding Capacity 308 mcg/dL (228-428); Total Protein 7.5 g/dL (6.5-8.0); Triglycerides 283 mg/dL (<150); Unsaturated Iron Binding 192 ug/dL
[2023-07-18 17:39] LABS: Ferritin 348 ng/mL (20-250); TSH reflex Free T4 1.88 uIU/mL (0.32-4.0)
== END 2023-07-18 15:37 | disposition home or self-care (01) ==
LOC: HO.LAB 15:36
PROVIDERS: PCP Nurse Practitioner Family; Visit Provider Nurse Practitioner Family
DX: Z00.00 Encounter for general adult medical examination without abnormal findings (principal); Z13.6 Encounter for screening for cardiovascular disorders; E83.119 Hemochromatosis, unspecified
CPT/HCPCS: 36415; 80053; 80061; 81001; 82728; 83540; 84443; 85025

== ENCOUNTER 2024-04-14 08:07 | Outpatient (AMB) | payer BC, SELFPAY ==
--- OUTSIDE RECORDS SUMMARY | 2024-04-14 08:10 | XMS_ITS ---
Author Organization [facility] Address [address] [place] [address] Care Team Providers Care Hydrate Control Tender Name Role Phone Ignacio Padilla Primary Care Provider Unav ailable Josh iBllings Unavailable [phone] REASON FOR VISIT cx appt 04/19/23 Encounters Encounter Location Date Provider Diagnosis [facility] [address] [place] [address] 04/17/2023 Josh Billings Plan Of Treatment No Information Progress Notes * Cole LANZADOB:[birth year] (58 yo M)Acc No.[id number]:04/17/2023 Patient:?Cole Lanza :1965???Age:58 Y???Sex:Male Address: [address] [facility] [place] [place], [address] * true * Date:? Generated for Printi ng/Faayannag/eTransmitting on:?04/14/2024 08:09 AM EST
--- OUTSIDE RECORDS SUMMARY | 2024-04-14 08:10 | XMS_ITS ---
Author Organization [facility] Address [address] [place] [address] Care Team Providers Care Metal Organ Pipe Maker Name Role Phone Ignacio Padilla Primary Care Provider Unav ailable Josh Billings Unavailable [phone] Allergies No Known Allergies REASON FOR VISIT Heel pain Medications Medication SIG (Take, Route, Frequency, Duration) Notes Start Date End Date Status Lisinopril 40 MG 1 tablet Orally Once a day for 30 day(s) Not-Taking Pravastatin Sodium 40 MG 1 tablet Orally Once a day for 30 day(s) Not-Taking Rosuvastatin Calcium Active Lisinopril 40 MG 1 tablet Orally Once a day for 30 day(s) Active Pravastatin Sodium 40 MG 1 tablet Orally Once a day for 30 day(s) Not-Taking Social History Tobacco Use: Social History Observation Description Date Details (start date - stop date) Never Smoker NA - NA Tobacco Use/Smoking Question Answer Notes Are you a: nonsmoker Additional Findings: Tobacco Non-User Current no n-smoker Alcohol Screen Question Answer Notes Did you have a drink contain ing alcohol in the past year? Yes How often did you have a dri nk containing alcohol in the past year? 2 to 4 times a month (2 points) Points 2 Interpretation Negative Tobacco use other than smoking: Question Answer Notes Are you an other tobacco user? No Vital Signs Height 6ft 3in in 03/22/2023 Weight 260 lbs 03/22/2023 BMI 32.49 kg/m2 03/22/2023 Procedures Procedure Date Ordered Date Performed Result Body Sit e ,[id number] TENDON SHEATH/LIGAMENT 03/22/2023 N/A Encounters Encounter Location Date Provider Diagnosis [facility] [address] [address] 03/22/2023 Josh Awa Plantar fasciitis M72.2 Assessments Encounter Date Diagnosis (ICD Code) Assessment Notes Treatment Notes Treatment Clinical Notes Section Notes 03/22/2023 Plantar fasciitis (ICD-10 - M72.2) Resistant to previous conservative treatment Patient Educated with: RICE THERAPY.pdf (RICE THERAPY.pdf) Patient Educated with: INJECTIONTHERA PY.pdf (INJECTIONTHER APY.pdf) Plan Of Treatment Treatment Notes Assessment Notes Plantar fasciitis Patient Educated wit h: RICE THERAPY.pdf (RICE THERAPY.pdf) Patient Educated with: INJECTIONTHERAPY.pdf (INJECTIONTHERAPY.pdf) Pending Test Test Name Order Date ,[id number] TENDON SHEATH/LIGAMENT 1 05/23/2022 Next Appt Details Follow Up: prn, Reason: Procedure Notes * Category Sub-Category Detail Notes Injection Tendon Sheath or Fascia , J 701 Injection 1 LEFT foot, - Plantar Fascia w/ mixture of Celestone Soluspan 3mg and 1cc 1 percent Xylocaine Plain anes. utilizing aseptic technique. The patient tolerated the procedure well. A dry sterile dressing was applied. Post injection instructions were dispensed, verbally discussed, and confirmed understood by the patient. I explained that a steroid and local anesthetic injections are administered to relieve pain and inflammation and thereby meant to improve function. I explained the possible complications including but not limited to signs/symptoms of steroid flare, infection, bruising, atrophy, discoloration of skin, change/deviation in toe position, and that additional injections may be necessary, Patient relates post-procedural pain assessment improved at ( 0-1) out of 10 Progress Notes * Cole LANZADOB:[birth year] (58 yo M)Acc No.[id number]:03/22/2023 Progress Notes Patient:?Kristian Lanzanemo Provider:?Josh Billings DPM :1965???Age:58 Y???Sex:Male Tramaine e:03/22/2023 Address:[address] [place] [address], [phone] Pcp:ELVER Holland Subjective: * Chief Complaints: * ???Heel pain * HPI: ???Heel pain:?Location:?Proximal plantar aspect of Heel, LEFT.?Treatments:?rest/alter normal daily activity, medication ( Voltaren gel, Icy hot spray) , stretching, massage, AFO-nightsplint, Pre-destin orthoses.?Severity/Quality:?Pre-injection procedure pain assessment - ( 8-9) out of 10.?Misc:?Patient states previous conservative therapy has not provided acceptable relief. Despite previous treatments/efforts, patient continues to relate substantial pain and significant functional disability during activity.? * ROS:?General/Constitutional:?Nausea?denies.?Vomiting?denies.?Hunger Thirst?denies.?Loss appetite?denies.?Chills?denies.?Fatigue?denies.?Fever?denies.?Night Sweats?denies.?Unexplained weight loss?denies.?Unexplained weight gain?denies.?HEENTM:?Dentures?denies.?Dizziness?denies.?Glasses/contacts?admits.?Retinopathy?de nies.?Blurred/double vision?denies.?TMJ?denies.?Discharge/drainage?denies.?Implants?denies.?Sore throat?denies.?Dental implants?denies.?Hard of hearing ?denies.?Difficulty chewing/swallowing/speaking?denies.?Nose bleeds?denies.?Sore mouth?denies.?Respiratory:?On Oxygen?denies.?Pneumonia/pleurisy?denies.?Bronchitis?denies.?Emphysema?denies.?C oughing?denies.?Cough blood?denies.?Shortness of breath?denies.?Wheezing?denies.?Cardiovascular:?Pacemaker?denies.?MVP?denies.?WPW?denies.?CHF?denies.?Heart attack?denies.?Septal defect?denies.?Rapid beat?denies.?Chest pain ?denies.?Atrial Fib.?denies.?Murmur/Palpitations?denies.?Gastrointestinal:?Hemorrhoids?denies.?Stomach/Abdominal pain?denies.?Dark blood stool?denies.?Irritable bowel ?denies.?Constipation?denies.?Diarrhea?denies.?Hematology:?Swelling?denies.?Clots?denies.?Varicose Veins?denies.?Bruising?denies.?Bleeding problem?denies.?Genitourinary:?Blood urine?denies.?Frequent/Painfu/urination/bladder control?denies.?Kidney stones?denies.?Infection (UTI)?denies.?Nephropathy?denies.?sex trans dis (STD)?denies.?Prostate?denies.?Musculoskeletal:?Hammertoes?denies.?Bunions?denies.?Back Pain?denies.?Muscle Cramps/ Resting?denies.?Muscle cramps / walking?denies.?Generalized aches and pains?denies.?Weakness?denies.?Integ.:?Jaramillo?denies.?Scars?denies.?Corns/calluses?denies.?Ingrown nails?denies.?Painful nails?denies.?Open Sores?denies.?Rashes?denies.?Neurologic:?Difficulty sleeping?denies.?Brain disorder?denies.?Numbness?denies.?Balance trouble?denies.?Confusion?denies.?Fainting/blackouts?denies.?Tingling?denies.?Tr emors?denies.? * Medical History:? * Surgical History:?bowel rese ction * Hospitalization/Major Diagno stic Procedure:?Denies Past Hospitalization * Family History:?Mother: dece ased, diagnosed with Other malignant neoplasm of unspecified site.?Father: .?Siblings: diagnosed with Other malignant neoplasm of unspecified site.? * Social History:?Tobacco Use:?Tobacco Use/Smoking?Are you a:?nonsmoker ?Additional Findings: Tobacco Non-User?Current non-smoker ?Tobacco use other than smoking?Are you an other tobacco user??No ???Drugs/Alcohol:?Drugs?Have you used drugs other than those for medical reasons in the past 12 months??No ?Alcohol Screen?Did you have a drink containing alcohol in the past year??Yes ?How often did you have a drink containing alcohol in the past year??2 to 4 times a month (2 points) ?Points?2 ?Interpretation?Negative ???Miscellaneous:?Caffeine: yes, 2-3 cups per day. ?Children: yes, 2. ?Exercise: yes, weight lifting. ?Marital status: . 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 * Medications:?TakingRosuvasta tin Calcium Lisinopril 40 MG Tablet 1 tablet Orally Once a dayTaking Rosuvastatin Calcium Taking Lisinopril 40 MG Tablet 1 tablet Orally Once a dayNot-Taking/PRNPravastatin Sodium 40 MG Tablet 1 tablet Orally Once a dayLisinopril 40 MG Tablet 1 tablet Orally Once a dayPravastatin Sodium 40 MG Tablet 1 tablet Orally Once a dayMedication List reviewed and reconciled with the patientNot-Taking/PRN Pravastatin Sodium 40 MG Tablet 1 tablet Orally Once a dayNot-Taking/PRN Lisinopril 40 MG Tablet 1 tablet Orally Once a dayNot- Taking/PRN Pravastatin Sodium 40 MG Tablet 1 tablet Orally Once a dayMedication List reviewed and reconciled with the patient * Allergies:?N.K.D.A.yes[Aller gies Verified] Objective: * Vitals:?Ht: 6ft 3in, Wt:260, BMI:32.49, Shoe size: 11.5, Ht-cm: 190.5 cm, Wt-k.93 kg. * Examination: ???Heel Pain: ?INSPECTION:? Pain on Palpation to Plantar Fascia med. and central bands, intrinsic musc., infra-calcaneal bursa, and med calc tubercle , LEFT foot, No pain: posterior/superior heel, achilles bursa/tendon, sinus tarsi, peroneals, or with lateral heel compression; no limited STJ ROM, calor, or ecchymosis.? Assessment: * Assessment: 1.?Plantar fasciitis - M72.2 (Primary), LEFT, Resistant to previous conservative treatment? Plan: * Treatment: * Procedures:?Injection:?Tendon Sheath or Fascia?78970, J0702 Injection 1 LEFT foot, - Plantar Fascia w/ mixture of Celestone Soluspan 3mg and 1cc 1 percent Xylocaine Plain anes. utilizing aseptic technique. The patient tolerated the procedure well. A dry sterile dressing was applied. Post injection instructions were dispensed, verbally discussed, and confirmed understood by the patient. I explained that a steroid and local anesthetic injections are administered to relieve pain and inflammation and thereby meant to improve function. I explained the possible complications including but not limited to signs/symptoms of steroid flare, infection, bruising, atrophy, discoloration of skin, change/deviation in toe position, and that additional injections may be necessary, Patient relates post-procedural pain assessment improved at ( 0-1) out of 10.? * Procedure Codes:?89606 INJ T ENDON SHEATH/LIGAMENT, Modifiers: LT J0702 INJ BETAMETHSN ACTAT&SOD PHOSPH-3MG * Preventive Medicine:? ??Counseling:?P.R.I.C.E.:?The patient was counseled on the use of P.R.I.C.E. and NSAIDS (if well tolerated) to aid in the recovery from their painful condition.?Steriod Injection:?I explained that a steroid and local anesthetic injections are administered to relieve pain and inflammation and thereby meant to improve function. I explained the possible complications including but not limited to signs/symptoms of steroid flare, infection, bruising, atrophy, discoloration of skin, change/deviation in toe position, and that additional injections may be necessary, cortisone post-injection informative educational handout was dispensed to and reviewed with the patient.? * Follow Up:?prn * Images: * Sign off status: Completed true * Provider:?Josh Billings DPM Date:?2022 Generated for Derik toro/Perez/Олег on:?04/14/2024 08:10 AM EST History and Physical Notes * HPI (History of Present Illness) Category Sub-Category Detail Notes Category Not es Heel pain Severity/Quality: Pre-injection procedure pain assessment - ( 8-9) out of 10 Location: Proximal plantar asp ect of Heel, LEFT Treatments: rest/alter normal da javed activity, medication ( Voltaren gel, Icy hot spray) , stretching, massage, AFO-nightsplint, Pre-destin orthoses Misc: Patient states previ ous conservative therapy has not provided acceptable relief. Despite previous treatments/efforts, patient continues to relate substantial pain and significant functional disability during activity Examination Category Sub-Category Detail Notes Category Not es Heel Pain INSPECTION: Pain on Palpatio n to Plantar Fascia med. and central bands, intrinsic musc., infra-calcaneal bursa, and med calc tubercle , LEFT foot, No pain: posterior/superior heel, achilles bursa/tendon, sinus tarsi, peroneals, or with lateral heel compression; no limited STJ ROM, calor, or ecchymosis
--- OUTSIDE RECORDS SUMMARY | 2024-04-14 08:10 | XMS_ITS | Patient Health Record ---
[facility] Address [address] [place] [address] Care Team Providers Care Water/Wastewater Engineer Name Role Phone Ignacio Padilla Primary Care Provider Unav ailable Josh Billings Unavailable [phone] Allergies No Known Allergies Reason For Referral No Information Medications Medication SIG (Take, Route, Frequency, Duration) [...] Are you an other tobacco user? No Problems Problem Type SNOMED Code ICD Code Onset Dates Problem Status W/U Status Risk Notes Problem Interstitial myositis (34280796) Interstitial myositis of left foot (M60.172) Active confirmed Encounters Encounter Location Date [facility] [address] [place] [address] 04/17/2023 Josh Billings Plan Of Treatment Pending Test Test Name Order Date X ray : Foot, left 3V 02/12/202355377,[id number] TENDON SHEATH/LIGAMENT 1 05/23/202205758,[id number] TENDON SHEATH/LIGAMENT 1 06/02/2019 Insurance Providers Payer Name Payer Address Payer Phone Subscriber Number Group Number Insured Name Patient Relationship to Insured Coverage Start Date Coverage End Date [facility] [employer] [address] [place] [address] [id number] Walker Self - patient is the insured Medical (General) History Medical History History ICD Code Arthritis Colitis Hypertension Cholesterol Neutropenia Leukopenia Surgical History Surgery Date(Month/Year) bowel resection
--- OUTSIDE RECORDS SUMMARY | 2024-04-14 08:10 | XMS_ITS ---
Author [facility] Address [address] [place] [address] Care Team Providers Care Drug Abuse Resistance Education Officer Name Role Phone Ignacio Padilla Primary Care Provider Unav ailable Josh Billings Unavailable [phone] Encounters Encounter Location Date Provider Diagnosis [address] [address] 04/19/2023 Josh Billings Plan Of Treatment No Information Progress Notes * Cole WALKERDOB:[birth year] (59 yo M)Acc No.[id number]:04/19/2023 Progress Notes Patient:?Cole WALKER Provider:?Josh Billings DPM :1965???Age:58 Y???Sex:Male Tramaine e:04/19/2023 Address:[address] [place] [id number] Pcp:ELVER Holland Subjective: * Chief Complaints: * ??? * Medical History:? Objective: * Vitals:? Assessment: Plan: * Treatment: * Images: * The named appointment provid er may or may not be the originator of this progress note, and it is not deemed complete until electronically signed by the appointment provider. Sign off status: Pending * Provider:?Josh Billings DPM Date:?2023 Generated for Derik toro/Perez/Олег on:?04/14/2024 08:09 AM EST
--- NOTE | 2024-04-14 08:45 | AM.OFFWIN_ITS ---
Intake Vital Signs 04/14/24 08:48 Weight 268 lb BP 150/100 H Blood Pressure Location Lt brachial Position Sitting Pulse 83 Pulse Source Pulse Oximeter Temp 98.3 F Temp Source Oral Pulse Oximetry (%) 93 Oxygen Delivery Method Room Air Intake Visit Reasons: EP-head congestion, sob, cough Intake Note: Patient here for chest congestion, cough and SOB that has been present for almost 2 days. Patient Tobacco Use Status: Never used Tobacco Allergies No Known Allergies Allergy (Verified 04/14/24 08:48) Do you need a note to return to daycare/school/sports/work: No HPI HPI Comments History of Present Illness Details History - The patient is a 59-year-old male pres enting with symptoms of head congestion, chest congestion, shortness of breath, and fever. - Symptoms started a day and a half ago, with an initial fever managed by [id number] Tylenol Cold. - The patient experiences shortness of b reath, which is a new occurrence, and denies any history of asthma or COPD. - Fever recorded at 101?F was successful ly reduced with Tylenol Cold by the following morning. - The patient denies known recent exposu res to COVID-19, RSV, or other viral pathogens. - Persistent cough has contributed to ch est discomfort. - Pt reports no ear or sinus pain, but s ignificant head congestion is noted. - Symptom relief is pursued with over-th e-counter medication currently. Physical Exam General: Cooperative, healthy appearing, comfortable and no acute distress Orientation/consciousness: Patient oriented x3 Limitations: No limitations Head: Normal to inspection Ears: Hearing grossly normal bilaterally, external ears normal and TM's normal bilaterally Nose: Normal external nose present, Normal nares present and No nasal discharge present Face and sinus: Normal facial exam and Yes sinuses nontender Mouth: Normal oral and palatal mucosa present and moist mucous membranes Throat: Yes tonsils normal, Yes uvula midline. Posterior oropharynx erythema Eyes: Appearance normal, both eyes and all related structures Neck: Normal visual inspection Respiratory: Vesicular lung sounds RLL. Normal respiratory effort, able to speak in complete sentences, Actively coughing, no respiratory distress, not tachypneic, no tripod positioning and no use of accessory muscles. Oxygen saturation is a little low. Right lower lobe possibly affected by pneumonia Cardiovascular: Regular rate and rhythm. Normal S1 and S2 Skin: No rashes or lesions noted Neuro: Patient oriented x3 Extremities: Normal to inspection and Yes no clubbing, cyanosis or edema PFSH Medical History Sleep apnea Colitis Diverticulitis Hemochromatosis Hypertriglyceridemia Hypogonadotropic hypogonadism Plantar fascial fibromatosis of left foot Microhematuria Infectious and parasitic disease Dyslipidemia Leukopenia Arthritis Neutropenia HTN (hypertension) History of deviated nasal septum Surgical History Hx of vasectomy Hx of colonoscopy History of circumcision History of bowel resection Family History Father Pneumonia Mother Lung cancer Sister Breast cancer Brother No problems noted. Son No problems noted. Son No problems noted. Social History Housing: House Alcohol intake: current Alcohol intake frequency: does not drink Patient Tobacco Use Status: Never used Tobacco e-Cigarette/Vaping Use: Never Used service: No Current occupational status: employed Cognitive needs: No Hearing needs: No Vision needs: No Review of Systems Const All systems reviewed & are unremarkable except as noted in HPI and below Physical Exam Vital Signs: Last Vital Signs Temp 98.3 F 04/14/24 08:48 Pulse 83 04/14/24 08:48 BP 150/100 H 04/14/24 08:48 Pulse Ox 93 04/14/24 08:48 Oxygen Delivery Method Room Air 04/14/24 08:48 Assessment & Plan Assessment & Plan (1) Lower respiratory infection (e.g., bronchitis, pneumonia, pneumonitis, pulmonitis): Code(s): J22 - Unspecified acute lower respiratory infection Plan: Plan The patient will undergo a chest x-ray to evaluate the possibility of pneumonia, specifically in the right lower lobe as 02 sat is 94% and vesicular lung sounds. A Z-Philippe will be prescribed to serve as an antibiotic and anti-inflammatory agent, helping reduce lung inflammation and to potentially address walking pneumonia. Influenza, COVID-19, and RSV testing will be conducted to identify any viral causes. Should these tests return negative and CXR confirm a lobar pneumonia, a second antibiotic may be required. The patient is advised to continue using Tylenol Cold as needed for fever and congestion management. Patient was informed and verbally consented to the use of an ambient scribe for clinic note documentation during this visit Orders: Orders SARS-CoV2/FLU/RSV Today J22 - Unspecified acute lower respiratory infection XR chest 2V Today R05.9 - Cough, unspecified Medications: New azithromycin For 250 mg dose pack: take 500 mg today (day 1), then 250 mg for 4 days (days 2-5) PO 6 tabs 0RF Coding Level of Care Code Est Pt Level 4 (97350) Diagnoses Lower respiratory infection (e.g., bronchitis, pneumonia, pneumonitis, pulmonitis) J22
[2024-04-14 08:48] VITALS: BP 150/100; PULSE 83; TEMP 36.8; O2SAT 93
== END 2024-04-14 09:18 | disposition home or self-care (01) ==
PROVIDERS: PCP Nurse Practitioner Family; Visit Provider Physician Assistant
DX: J22 Unspecified acute lower respiratory infection (principal)

== ENCOUNTER 2024-04-14 08:07 | Outpatient (REF) | payer BC, SELFPAY ==
[2024-04-14 11:35] LABS: Influenza A PCR NEGATIVE (Negative); Influenza B PCR NEGATIVE (Negative); Resp Syncy Virus RNA Qual PCR NEGATIVE (Negative); SARS COV2 PCR INHOUSE NEGATIVE (Negative)
== END 2024-04-14 08:08 | disposition home or self-care (01) ==
LOC: HO.LAB 08:07
PROVIDERS: PCP Nurse Practitioner Family; Visit Provider Physician Assistant
DX: J22 Unspecified acute lower respiratory infection (principal)
CPT/HCPCS: 0241U

== ENCOUNTER 2024-04-14 09:13 | Outpatient (REF) | payer BC, SELFPAY ==
--- NOTE | ~2024-04-14 | XR_ITS ---
EXAMINATION: XR CHEST CLINICAL INFORMATION: R05.9 - Cough, unspecified COMPARISON: Cough. TECHNIQUE: 2 views of the chest were obtained. FINDINGS: The lungs are well-expanded and clear acute pneumonic process. There are atelectasis seen in the lingula segment. Heart size and poor vascularity is normal. No gross bony abnormality. XR/XR chest 2V IMPRESSION: Platelike atelectasis in the lingula. Electronically signed by: Anselmo Arthur MD 04/14/2024 10:49 AM SHILA
== END 2024-04-14 09:14 | disposition home or self-care (01) ==
LOC: HO.HMGCX 09:13
PROVIDERS: PCP Nurse Practitioner Family; Visit Provider Physician Assistant
DX: R05.9 Cough, unspecified (principal)
CPT/HCPCS: 71046

== ENCOUNTER → 2024-04-14 09:17 | Outpatient (BNV) | payer BC, SELFPAY | PROVIDERS: PCP Nurse Practitioner Family; Visit Provider Radiology Diagnostic Radiology | DX: R05.9 Cough, unspecified (principal) | CPT/HCPCS: 71046 ==

== ENCOUNTER 2024-09-23 15:47 | Outpatient (AMB) | payer BC, SELFPAY ==
--- NOTE | 2024-09-23 15:49 | A.OFFPC_ITS ---
Vital Signs 09/23/24 15:51 09/23/24 16:25 Height 6 ft 3 in Weight 273 lb BMI 34.1 BP 140/90 H 138/88 Blood Pressure Location Rt brachial Lt brachial Position Sitting Sitting Pulse 82 Pulse Source Pulse Oximeter Pulse Oximetry (%) 98 Oxygen Delivery Method Room Air Intake Visit Reasons: Annual PE-Reschedule Allergies No Known Allergies Allergy (Verified 09/23/24 15:51) Medication List - Last Reconciled 09/23/24 [facility] lisinopril 40 mg PO DAILY 90 days omega-3 fatty acids 1,000 mg PO BID rosuvastatin 20 mg PO DAILY 90 days sildenafil 50 mg PO DAILY PRN 30 days Tobacco use date assessed: 09/23/24 Dental Screening Dental Screen Date: 09/23/24 Did you have a dental visit in the last 12 months?: Yes Did you have a dental problem in the last 6 months where you did not have access to dental care?: No Was dental information given to patient?: Patient has dentist HPI Annual PE-Reschedule HPI Details History of Present Illness The patient is a 59-year-old male presenting with bilateral lower extremity swelling and discomfort. Approximately one month prior, the patient noticed muscular discomfort in both lower extremities, which resolved with NSAID therapy. Alongside this discomfort, the patient experiences swelling more pronounced in the left lower extremity than the right, noted with possible hemosiderin staining and varicose veins medially, bilat. The dorsalis pedis pulse on the left is challenging to palpate. Additionally, the patient has a left inguinal hernia, which infrequently causes mild discomfort. He reports consuming higher amounts of salt in his diet and denies any calf tenderness, chest pain, dyspnea, abdominal pain, gastrointestinal, or genitourinary symptoms. His colonoscopy is current, and he remains vigilant about his prostate health with an agreed upcoming PSA test. Health Maintenance - Colonoscopy is up to date. - Pending PSA (Prostate-Specific Antigen ) test to assess prostate health. - Encouraged to reduce dietary salt inta ke for better cardiovascular and general health. - Recommended home blood pressure monito ring due to borderline hypertension. Social History - Reports eating a significant amount of salt. - Advised to monitor and reduce salt int mckayla to manage blood pressure and edema. Review of Systems - Cardiovascular: Denies chest pain or s hortness of breath. - Gastrointestinal: Denies abdominal promise n, blood in stool, constipation, or diarrhea. - Genitourinary: Denies any urinary issu es. -denies any blurred vision, cp, sob, n/v . Physical Exam General: Cooperative, healthy appearing, comfortable, no acute distress and well developed Orientation: Patient oriented x3 Limitations: No limitations Head: Normal to inspection Ears: Hearing grossly normal bilaterally Nose: Normal external nose present Face and sinus: Normal facial exam Eyes: Appearance normal, both eyes and all related structures Neck: Normal visual inspection and Yes full ROM Respiratory: Normal respiratory effort and able to speak in complete sentences. Clear to auscultation bilaterally Cardiovascular: Regular rate and rhythm. Normal S1 and S2 GI: Normal to inspection. Soft to palpation and nontender : Left inguinal hernia noted Skin: faint Hemosiderin staining and swelling in bilateral lower extremities, left greater than right. Varicose veins in the medial aspect of lower extremities Neuro: Patient oriented x3 Extremities: Swelling in bilateral lower extremities, left greater than right. Difficult to find dorsalis pedis on the left side. No calf tenderness Results Plan For the management of bilateral lower extremity swelling and discomfort, I will proceed with venous testing to evaluate for insufficiency and perform an arterial study on the left side due to the diff finding dorsalis pedis pulse. The patient is advised to reduce salt intake substantially to assist in resolving the edema and monitor blood pressure at home. Recorded values should be provided for review, given his borderline hypertension. A CT scan will assess the left inguinal hernia; however, no surgical consultation is necessary currently due to its asymptomatic nature. A PSA test will be conducted as part of routine prostate health monitoring. Discussion Notes I discussed with the patient the likely cause of his bilateral lower extremity swelling, potentially related to venous insufficiency exacerbated by high salt intake. The potential risks and benefits of reducing dietary salt, monitoring blood pressure, and impending tests were fully explained. A proposed plan for managing the borderline hypertension and edema includes continued home blood pressure monitoring and dietary changes. Regarding the left inguinal hernia, I informed the patient about the planned CT scan to further evaluate its size and impact, assuring the patient that since it's not currently causing significant symptoms, immediate surgical referral is not necessary. We talked through the importance of PSA testing in early prostate disease detection given his age. Patient Instructions - Reduce salt intake significantly. - Monitor blood pressure at home and pro vide recorded values. - Report any worsening of leg swelling o r pain promptly. - Follow up for PSA testing as discussed . - Continue observing the left inguinal h ernia and report any changes or increase in discomfort. 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 Son No problems noted. Son No problems noted. 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 1. Little interest or pleasure in doing things: not at all 2. Feeling down, depressed, or hopeless: not at all 3. Trouble falling or staying asleep, or sleeping too much: not at all 4. Feeling tired or having little energy: not at all 5. Poor appetite or overeating: not at all 6. Feeling bad about yourself - or that you are a failure or have let yourself or your family down: not at all 7. Trouble concentrating on things, such as reading the newspaper or watching television: not at all 8. Moving or speaking so slowly that other people could have noticed. Or the opposite - being so fidgety or restless that you have been moving around a lot more than usual: not at all 9. Thoughts that you would be better off or of hurting yourself in some way: not at all Total score: 0 Depression Screening Interpretation: Negative Depression Screening Done: Yes 59535 - PHQ-9 Billing: Yes Source: Developed by Drs. Maynor Lee, Josi Joy, Carl Tobin and colleagues, with an educational jessica from [employer]. Thrive Questionnaire Date Thrive assessed: 09/23/24 I am a: Patient What is your living situation today?: I have a steady place to live Within the past 12 months, did the food you bought not last and you didn't have the money to get more?: Never true Within the past 12 months, did you worry whether your food would run out before you got money to buy more?: Never true Do you have trouble paying for medicines?: No Do you have trouble getting transportation to medical appointments?: No Do you have trouble paying your heating and electricity bill?: No Do you have trouble taking care of your child, family member or friend?: No Do you have trouble with day-to-day activities such as bathing, preparing meals, shopping, managing finances, etc.?: No Are you currently unemployed and looking for a job?: No Are you interested in more education?: Yes Please select the resources that you would like help with: None Currently or been in a relationship where the following occur: No concerns reported THRIVE Score: 0 AUDIT C Alcohol Use Questionnaire (AUDIT-C) 1. How often do you have a drink containing alcohol?: 2-4 times a month 2. How many drinks containing alcohol do you have on a typical day when you are drinking?: 1 or 2 3. How often do you have six or more drinks on one occasion?: Never Total Score: 2 Score Reviewed/Action Taken: Yes JG-7 AMB Questionnaire JG-7 Date JG - 7 assessed: 09/23/24 Feeling nervous, anxious, or on edge: 0 = Not at all Not being able to stop or control worryin = Not at all Worrying too much about different things: 0 = Not at all Trouble relaxin = Not at all Being so restless that it is hard to sit still: 0 = Not at all Becoming easily annoyed or irritable: 0 = Not at all Feeling afraid as if something awful might happen: 0 = Not at all Total JG-7 score (0-4 normal; 5-9 mild; 10-14 moderate; 15-21 severe): 0 Source: Developed by Drs. Maynor Lee, Josi Joy, Carl Tobin and colleagues, with an educational jessica from [employer]. JG-7 Assessment Billing JG-7 Assessment Tool: JG-7 Assessment 34836 Physical exam (Primary Care) Vital Signs: Last Vital Signs Pulse 82 09/23/24 15:51 BP 140/90 H 09/23/24 15:51 Pulse Ox 98 09/23/24 15:51 Oxygen Delivery Method Room Air 09/23/24 15:51 BMI result Body Mass Index 34.1 Tobacco/Smoking Status: Tobacco use Status Tobacco use date assessed 09/23/24 09/23/24 15:54 Patient Tobacco Use Status Never used Tobacco 09/23/24 15:50 e-Cigarette/Vaping Use Never Used 09/23/24 15:50 PHQ-9: PHQ-9 Score PHQ-9: Total score 0 09/23/24 16:21 Depression Screening Interpretation: Negative Thrive Assessment: Date of Thrive Assessment Date Thrive assessed 09/23/24 09/23/24 15:54 Currently or been in a relationship where the following occur: No concerns reported Coding Level of Care Code Est Pt Prev Care 40-64y(38546) Diagnoses Physical exam Z00.00 Screening PSA (prostate specific antigen) Z12.5 Left inguinal hernia K40.90 Leg swelling M79.89 Decreased pedal pulses R09.89 Additional Codes JG-7 Assessment Billing - JG-7 Assessment Tool: JG-7 Assessment 04301 ([id number]) PHQ-9 - 85516 - PHQ-9 Billing: Yes ([id number]) Assessment & Plan Assessment & Plan (1) Physical exam: Code(s): Z00.00 - Encounter for general adult medical examination without abnormal findings Category: Medical (2) Screening PSA (prostate specific antigen): Code(s): Z12.5 - Encounter for screening for malignant neoplasm of prostate Category: Medical (3) Left inguinal hernia: Code(s): K40.90 - Unilateral inguinal hernia, without obstruction or gangrene, not specified as recurrent Category: Medical (4) Leg swelling: Code(s): M79.89 - Other specified soft tissue disorders Category: Medical (5) Decreased pedal pulses: Code(s): R09.89 - Other specified symptoms and signs involving the circulatory and respiratory systems Category: Medical Plan . Orders: Orders Comprehensive [place]. Panel Fast Today Z00.00 - Encounter for general adult medical examination without abnormal findings UA CC w/rflx Micro + Cult Today Z00.00 - Encounter for general adult medical examination without abnormal findings US venous duplex LE BI Today M79.89 - Other specified soft tissue disorders Complete Blood Count Auto Diff Today Z00.00 - Encounter for general adult medical examination without abnormal findings TSH reflex Free T4 Today Z00.00 - Encounter for general adult medical examination without abnormal findings Lipid Panel Today Z00.00 - Encounter for general adult medical examination without abnormal findings Prostate Specific Antigen Scr Today Z12.5 - Encounter for screening for malignant neoplasm of prostate CT pelvis wo IV con Today K40.90 - Unilateral inguinal hernia, without obstruction or gangrene, not specified as recurrent US arterial duplex LE LT Today R09.89 - Other specified symptoms and signs involving the circulatory and respiratory systems
[2024-09-23 15:51] VITALS: BP 140/90; PULSE 82; O2SAT 98; BMI 34.1
[2024-09-23 16:25] VITALS: BP 138/88
--- OUTSIDE RECORDS SUMMARY | 2024-09-23 18:06 | XMS_ITS ---
Author Organization [facility] Address [address] [place] [address] Care Team Providers Care Medical Technologist Chemistry Name Role Phone Ignacio Padilla Primary Care Provider Unav ailable Josh Billings Unavailable [phone] Encounters Encounter Location Date Provider Diagnosis [address] [address] 04/19/2023 Josh Billings Plan Of Treatment No Information Progress Notes * Cole WALKERDOB:[birth year] (59 yo M)Acc No.[id number]:04/19/2023 Progress Notes Patient:?MOHAMUDAMANDAJANIELESLICole Provider:?Josh Billings DPM :1965???Age:58 Y???Sex:Male Tramaine e:04/19/2023 Address:[address] [place] [id number] Pcp:ELVER Holland Subjective: * Chief Complaints: * ??? * Medical History:? Objective: * Vitals:? Assessment: Plan: * Treatment: * Images: * The named appointment provid er may or may not be the originator of this progress note, and it is not deemed complete until electronically signed by the appointment provider. Sign off status: Pending * Provider:?Josh Billings DPM Date:?2023 Generated for Derik toro/Perez/Олег on:?09/23/2024 06:06 PM EDT
== END 2024-09-23 16:30 | disposition home or self-care (01) ==
LOC: HO.HMCC 15:48
PROVIDERS: PCP Nurse Practitioner Family; Visit Provider Nurse Practitioner Family
DX: Z00.00 Encounter for general adult medical examination without abnormal findings (principal); Z12.5 Encounter for screening for malignant neoplasm of prostate; K40.90 Unilateral inguinal hernia, without obstruction or gangrene, not specified as recurrent; M79.89 Other specified soft tissue disorders; R09.89 Other specified symptoms and signs involving the circulatory and respiratory systems

== ENCOUNTER → 2024-09-23 15:47 | Outpatient (BNVA) | payer BC, SELFPAY | PROVIDERS: PCP Nurse Practitioner Family; Visit Provider Nurse Practitioner Family | DX: Z00.00 Encounter for general adult medical examination without abnormal findings (principal); K40.90 Unilateral inguinal hernia, without obstruction or gangrene, not specified as recurrent; M79.89 Other specified soft tissue disorders; R09.89 Other specified symptoms and signs involving the circulatory and respiratory systems | CPT/HCPCS: 96127 ==

== ENCOUNTER 2024-11-09 08:23 | Outpatient (REF) | payer BC, SELFPAY ==
--- NOTE | ~2024-11-09 | US_ITS ---
EXAMINATION: US LOWER EXTREMITY VENOUS (REFLUX EXAM), BILATERAL CLINICAL INFORMATION: Unspecified soft tissue disorders. COMPARISON: None. TECHNIQUE: Color flow triplex imaging and compression Doppler was performed to evaluate both the deep and the superficial systems bilaterally. To evaluate the superficial system, the examination was performed in the upright position. Color-flow Doppler ultrasound and compression ultrasound were utilized. In addition, maneuvers were utilized to demonstrate reflux. FINDINGS: 1. DEEP VENOUS ULTRASOUND OF THE RIGHT LOWER EXTREMITY: Common Femoral Vein: Compressible, normal respiratory variation and augmented flow. Femoral Vein: Compressible, normal color flow and augmentation. Popliteal Vein: Compressible, normal augmentation. Deep Reflux: There is no evidence of reflux in the deep system in either the common femoral vein, superficial femoral or the popliteal vein. There is no evidence of a Kwan's cyst. 2. SUPERFICIAL ULTRASOUND WITH DOPPLER OF RIGHT LOWER EXTREMITY: GREAT SAPHENOUS VEIN: Saphenofemoral Junction: 1.0 cm; Reflux: 0 ms Proximal Thigh: 0.5 cm; Reflux: 0 ms Mid Thigh: 0.3 cm; Reflux: 2132 ms Distal Thigh: 0.4 cm; Reflux: 2972 ms At Knee: 0.5 cm; Reflux: 2220 ms Proximal Calf: 0.6 cm; Reflux: 2568 ms Mid Calf: 0.5 cm; Reflux: 2532 ms Distal Calf: 0.3 cm; Reflux: 0 ms DUPLICATED MEDIAL GREAT SAPHENOUS VEIN: Diameter: None imaged Reflux: NA DUPLICATED LATERAL GREAT SAPHENOUS VEIN: Diameter: 0.4 cm. Reflux: NA SMALL SAPHENOUS VEIN: Saphenopopliteal Junction: 0.2 cm; Reflux: 0 ms Proximal: 0.2 cm; Reflux: 0 ms Distal: 0.3 cm; Reflux: 0 ms VEIN OF GIACOMINI: Size: NA Reflux: NA PERFORATORS: Location: Small saphenous vein distal segment and proximal calf. Size: 0.1-0.3 cm. Reflux: NA VARICOSITIES: Location: At the knee and proximal calf. Size: 0.3-0.5 cm. Reflux: Range: 416 ms-2628 ms. 3. DEEP VENOUS ULTRASOUND OF THE LEFT LOWER EXTREMITY: Common Femoral Vein: Compressible, normal respiratory variation and augmented flow. Femoral Vein: Compressible, normal color flow and augmentation. Popliteal Vein: Compressible, normal augmentation. Deep Reflux: There is no evidence of reflux in the deep system in either the common femoral vein, superficial femoral or the popliteal vein. There is a 5 cm lobulated anechoic lesion with internal echoes in the popliteal fossa without flow on color Doppler interrogation. 4. SUPERFICIAL ULTRASOUND WITH DOPPLER OF LEFT LOWER EXTREMITY: GREAT SAPHENOUS VEIN: Saphenofemoral Junction: 1.0 cm; Reflux: 0 ms Proximal Thigh: 0.6 cm; Reflux: 0 ms Mid Thigh: 0.3 cm; Reflux: 0 ms Distal Thigh: 0.4 cm; Reflux: 2700 ms At Knee: 0.5 cm; Reflux: 2608 ms Proximal Calf: 0.5 cm; Reflux: 0 ms Mid Calf: 0.4 cm; Reflux: 1844 ms Distal Calf: 0.3 cm; Reflux: 0 ms DUPLICATED MEDIAL GREAT SAPHENOUS VEIN: Diameter: None imaged Reflux: NA DUPLICATED LATERAL GREAT SAPHENOUS VEIN: Diameter: 0.4-0.5 cm. Reflux: NA SMALL SAPHENOUS VEIN: Saphenopopliteal Junction: 0.4 cm; Reflux: 0 ms Proximal: 0.3 cm; Reflux: 0 ms Distal: 0.3 cm; Reflux: 0 ms VEIN OF GIACOMINI: Size: NA Reflux: NA PERFORATORS: Location: Small saphenous vein, proximal and distal segments. Mid thigh. Size: 0.1-0.2 cm. Reflux: NA VARICOSITIES: Location: Proximal and distal thigh. At the knee and proximal calf. Size: 0.3-0.4 cm. Reflux: Range: 2448 ms-2888 ms. US/US venous duplex LE BI IMPRESSION: Right: Venous insufficiency, great saphenous vein from the mid thigh to the mid calf. Varices at the knee and proximal calf with reflux. Perforators without reflux. Left: Venous insufficiency, great saphenous vein from above the knee to the mid calf. Varices with reflux from the proximal thigh to the knee. 5 cm complex cystic lesion, left popliteal fossa. Electronically signed by: Gerber Funes MD 11/09/2024 10:03 AM EDT
--- OUTSIDE RECORDS SUMMARY | 2024-11-09 08:34 | XMS_ITS | Patient Health Record ---
Author Organization [facility] Address [address] [place] [address] Care Team Providers Care Rope Cleaner Name Role Phone Ignacio Padilla Primary Care Provider Unav ailable Josh Billings Unavailable [phone] Allergies No Known Allergies Reason For Referral No Information Medications Medication SIG (Take, Route, Frequency, Duration) Notes Start Date End Date Status Lisinopril 40 MG 1 tablet Orally Once a day; Duration: 30 day(s) Not-Taking Pravastatin Sodium 40 MG 1 tablet Orally Once a day; Duration: 30 day(s) Not-Taking Rosuvastatin Calcium Active Lisinopril 40 MG 1 tablet Orally Once a day; Duration: 30 day(s) Active Pravastatin Sodium 40 MG 1 tablet Orally Once a day; Duration: 30 day(s) Not-Taking Social History Tobacco Use: [...] W/U Status Risk Notes Problem Interstitial myositis of left foot (M60.172) Active confirmed Plan Of Treatment Pending Test Test Name Order Date X ray : Foot, left 3V 02/12/202372433,[id number] TENDON SHEATH/LIGAMENT 1 05/23/202226383,[id number] TENDON SHEATH/LIGAMENT 1 06/02/2019 Insurance Providers Payer Name Payer Address Payer Phone Subscriber Number Group Number Insured Name Patient Relationship to Insured Coverage Start Date Coverage End Date [facility] All Others [address] [place] [address] [id number] Cole Walker Self - patient is the insured Medical (General) History Medical History History ICD Code Arthritis Colitis Hypertension Cholesterol Neutropenia Leukopenia Surgical History Surgery Date(Month/Year) bowel resection
--- OUTSIDE RECORDS SUMMARY | 2024-11-09 08:34 | XMS_ITS | Clinical Summary ---
Author Organization [facility] Address [address] [place] [address] Care Team Providers Care Amusement Park Entertainer Name Role Phone Unavailable Primary Care Provider Unavailabl e Social History Tobacco Use Types Packs/Day Years Used Date Smoking Tobacco: Never Assessed Sex and Gender Information Value Date Recorded Sex Assigned at Not on file Legal Sex Male 10:32 AM EST Gender Identity Not on file Sexual Orientation Not on file Plan of Treatment Health Maintenance Due Date Last Done Comments DTaP,Tdap,and Td Vaccines (1 - Tdap) 1986 Hepatitis B Vaccines (1 of 3 - 19+ 3-dose series) 1986 Pneumococcal Vaccine: 50+ Ye ars (1 of 1 - PCV) 2017 Zoster Vaccines (1 of 2) 2017 COVID-19 Vaccine ( - 2023-2 5 season) 2023 Depression Screening 04/15/2024 Influenza Vaccine (#1) 2024 HIB Vaccines Aged Out No longer eligi ble based on patient's age to complete this topic HPV Vaccines Aged Out No longer eligi ble based on patient's age to complete this topic Hepatitis A Vaccines Aged Out No long er eligible based on patient's age to complete this topic IPV Vaccines Aged Out No longer eligi ble based on patient's age to complete this topic MMR Vaccines Aged Out No longer eligi ble based on patient's age to complete this topic Meningococcal ACWY Vaccine Aged Out N o longer eligible based on patient's age to complete this topic Meningococcal B Vaccine Aged Out No l onger eligible based on patient's age to complete this topic RSV Immunization Patients Un yoshi 20 months Aged Out No longer eligible b ased on patient's age to complete this topic Varicella Vaccines Aged Out No longer eligible based on patient's age to complete this topic
[2024-11-09 09:43] LABS: MANUAL DIFF FLAG NO
[2024-11-09 10:46] LABS: Hematocrit 47.3 % (42.0-52.0); Hemoglobin 15.6 g/dl (14.0-18.0); Imm Gran Abs Auto 0.02 X10*3/uL (0.00-0.03); Imm Gran Pct Auto 0.5 % (0.0-0.4); Lymphocytes Absolute Auto 1.5 X10*3/uL (1.2-4.9); Mean Corpuscular HGB Conc 33.0 g/dl (31.0-36.0); Mean Corpuscular Hemoglobin 30.5 pg (27.0-33.0); Mean Corpuscular Volume 92.6 fL (80.0-98.0); NRBC Abs Auto 0.000 X10*3/uL (0.0-0.012); NRBC Pct Auto 0.0 /100WBC (0.0-0.2); Platelet Count 261 X10*3/uL (160-400); Red Blood Count 5.11 X10*6/uL (4.60-5.80); White Blood Count 4.4 X10*3/uL (4.8-10.8)
[2024-11-09 11:16] LABS: Appearance Urine Clear; Glucose Urine UA Negative (Negative); PH 6.5 (5.0-9.0); Specific Gravity - Urine 1.020 (1.005-1.025); UMIC TRIGGER UACC YES
[2024-11-09 11:55] LABS: Alanine Aminotransferase 38 U/L (0-40); Albumin Level 4.5 g/dL (3.5-5.0); Alkaline Phosphatase 56 U/L (39-117); Anion Gap 10 (12-20); Aspartate Amino Transferase 29 U/L (5-37); Blood Urea Nitrogen 14 mg/dL (9-16); Calcium 9.2 mg/dL (8.4-10.2); Carbon Dioxide 29 mmol/L (22-29); Chloride 108 mmol/L (96-108); Cholesterol 170 mg/dL (<200); Estimated Glomerular Filt Rate > 60; HDL Cholesterol 33 mg/dL (>40); Potassium 3.9 mmol/L (3.3-5.1); Sodium 143 mmol/L (135-145); Total Protein 7.4 g/dL (6.5-8.0); Triglycerides 142 mg/dL (<150)
== END 2024-11-09 08:24 | disposition home or self-care (01) ==
LOC: HO.US 08:23
PROVIDERS: PCP Nurse Practitioner Family; Visit Provider Nurse Practitioner Family
DX: Z00.00 Encounter for general adult medical examination without abnormal findings (principal); Z12.5 Encounter for screening for malignant neoplasm of prostate; M79.89 Other specified soft tissue disorders
CPT/HCPCS: 36415; 80053; 80061; 81001; 81003; 84153; 84443; 85025; 93970

== ENCOUNTER → 2024-11-09 08:25 | Outpatient (BNV) | payer BC, SELFPAY | PROVIDERS: PCP Nurse Practitioner Family; Visit Provider Radiology Diagnostic Radiology | DX: I83.813 Varicose veins of bilateral lower extremities with pain (principal); M71.22 Synovial cyst of popliteal space [Baker], left knee | CPT/HCPCS: 93970 ==

== ENCOUNTER 2024-11-23 13:48 | Outpatient (REF) | payer BC, SELFPAY ==
--- NOTE | ~2024-11-23 | US_ITS ---
EXAMINATION: US NONINVASIVE ASSESSMENT OF THE LEFT LOWER EXTREMITY WITHOUT ARTERIAL DUPLEX AND ANKLE BRACHIAL INDICES (ABIS) CLINICAL INFORMATION: Hypertension. Hyperlipidemia. COMPARISON: None available. TECHNIQUE: Duplex Doppler techniques with waveform analysis and measurement of velocities in the left common femoral, profunda femoris, superficial femoral, popliteal and tibial arteries were performed. The study was performed only at rest. FINDINGS: LEFT LOWER EXTREMITY DUPLEX ULTRASOUND: Common femoral artery: 104 cm/s. Waveforms: Triphasic. Profunda femoris artery: 50 cm/s. Waveforms: Triphasic Superficial femoral artery (proximal): 74 cm/s. Waveforms: Triphasic. Superficial femoral artery (mid): 78 cm/s. Waveforms: Triphasic. Superficial femoral artery (distal): 74 cm/s. Waveforms: Triphasic. Popliteal artery: 80 cm/s Waveforms: Triphasic. Posterior tibial artery: 98 cm/s Waveforms: Triphasic. Anterior tibialis artery: 59 cm/s. Triphasic waveform. Peroneal artery: 86 cm/s. Triphasic waveform. Dorsalis pedis artery: 51 cm/s. Triphasic waveform. There is thick walled lobulated 4.4 cm anechoic lesion in the popliteal fossa without flow on color Doppler interrogation. US/US arterial duplex LE LT IMPRESSION: No gross inflow disease. 4.4 cm complex popliteal cyst. Electronically signed by: Gerber Funes MD 11/23/2024 03:46 PM EDT
--- OUTSIDE RECORDS SUMMARY | 2024-11-23 14:13 | XMS_ITS | Clinical Summary ---
Author Organization [facility] Address [address] [place] [address] Care Team Providers Care Valve Fitter Name Role Phone Unavailable Primary Care Provider [...]
--- OUTSIDE RECORDS SUMMARY | 2024-11-23 14:14 | XMS_ITS | Patient Health Record ---
Author Organization [facility] Address [address] [place] [address] Care Team Providers Care Financial Director Name Role Phone Ignacio Padilla Primary Care Provider Unav ailable Josh Billings Unavailable [phone] Allergies No Known Allergies Reason For Referral [...] W/U Status Risk Notes Problem Interstitial myositis (44882528) Interstitial myositis of left foot (M60.172) Active confirmed Plan Of Treatment Pending Test Test Name Order Date X ray : Foot, left 3V 02/12/2023,[id number] TENDON SHEATH/LIGAMENT 1 05/23/202225838,[id number] TENDON SHEATH/LIGAMENT 1 06/02/2019 Insurance Providers Payer Name Payer Address Payer Phone Subscriber Number Group Number Insured Name Patient Relationship to Insured Coverage Start Date Coverage End Date [employer] All Others [address] [place] [address] [phone] [id number] Cole Walker Self - patient is the insured Medical (General) History Medical History History ICD Code Arthritis Colitis Hypertension Cholesterol Neutropenia Leukopenia Surgical History Surgery Date(Month/Year) bowel resection
== END 2024-11-23 13:49 | disposition home or self-care (01) ==
LOC: HO.US 13:48
PROVIDERS: PCP Nurse Practitioner Family; Visit Provider Nurse Practitioner Family
DX: R09.89 Other specified symptoms and signs involving the circulatory and respiratory systems (principal)
CPT/HCPCS: 93926

== ENCOUNTER → 2024-11-23 13:50 | Outpatient (BNV) | payer BC, SELFPAY | PROVIDERS: PCP Nurse Practitioner Family; Visit Provider Radiology Diagnostic Radiology | DX: M71.22 Synovial cyst of popliteal space [Baker], left knee (principal) | CPT/HCPCS: 93926 ==

== ENCOUNTER 2024-12-29 09:27 | Outpatient (AMB) | payer BC, SELFPAY ==
--- NOTE | 2024-12-29 09:38 | A.OFFVIS_ITS ---
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 Right leg is constantly aching. Has been about 6 months or so. No other symptoms. Accompanied by: Self / Same As Patient Allergies No Known Allergies Allergy (Verified 12/29/24 09:41) [facility] HPI PATTERNMAKER BENCH : Details: The patient is a 59-year-old male presenting with venous insufficiency. He repor ts swelling above the ankle and achiness in both legs, with the right leg being more symptomatic than the left. The symptoms have been progressive, and he has noticed skin changes and varicose veins developing over time. The patient denies any history of smoking or diabetes, and he has a family history of venous issues, as his father had similar problems. He works in [employer], primarily in a sedentary position, which may contribute to his condition. It has been affecting there daily activities including including walking. It is noted more so in right leg. Patient denies any previous venous surgery or injections. Patient denies any history of DVT/ PE. Patient denies any history of phlebitis. Trial of compression includes - [id number] They now present for vascular evaluation regarding their varicose veins. [facility] Medical History Sleep apnea Colitis Diverticulitis Hemochromatosis Hypertriglyceridemia Hypogonadotropic hypogonadism Plantar fascial fibromatosis of left foot Microhematuria Infectious and parasitic disease Dyslipidemia Leukopenia Arthritis Neutropenia HTN (hypertension) History of deviated nasal septum Surgical History Hx of vasectomy Hx of colonoscopy History of circumcision History of bowel resection Family History Father Pneumonia Mother Lung cancer Sister Breast cancer Brother No problems noted. Son No problems noted. Son No problems noted. 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, [employer] Current occupational exposures/hazards: No Cognitive needs: No Hearing needs: No Vision needs: No Review of Systems Const Reports as per HPI ENT Reports no additional complaints Card Denies chest pain, Denies chest pain at rest and Denies chest pain with activity Resp Denies chest congestion and Denies cough GI Reports no additional complaints Musc Details: pain over varicosities, aching of lower extremities, swelling, cramping, heaviness and tiredness, itching Denies abnormal gait Skin/Breast Reports pruritus and Denies wounds Neuro Reports no additional complaints and Denies abnormal gait Psych Denies no additional complaints Physical Exam Const General: cooperative, healthy appearing and comfortable Orientation/consciousness: oriented to person, oriented to place and oriented to time Neck Carotids: no bruits Chest Chest palpation & inspection: normal inspection of the chest and normal palpation of entire chest wall Resp Effort & Inspection: normal respiratory effort and able to speak in complete sentences Cardio Rate: regular rate Heart sounds: S1 normal heart sound present and S2 normal heart sound present Peripheral pulses: Peripheral pulses 2+ throughout GI Inspection: Yes normal to inspection Skin Other: +2 edema, large rope-like varicosities greater than 4 mm CEAP Classification C4 - skin color changes Ep - Etiology Primary As - superficial veins P - reflux General skin exam: dry skin Neuro General: oriented to person, oriented to place and oriented to time Extrem Right lower extremity: full ROM, normal capillary refill and edema Left lower extremity: full ROM, normal capillary refill and edema Psych Mental Status: mental status grossly normal Results Reviewed Results Reviewed: Brief summary of venous insufficiency testing is as follows: right great saphenous vein: Positive right small saphenous vein: negative right accessory vein: none present left great saphenous vein: Positive left small saphenous vein: negative left accessory vein: none present Please note there is no evidence of any venous aneurysms or significant tortuosity Assessment & Plan Assessment & Plan (1) Varicose veins of right lower extremity with inflammation: Code(s): I83.11 - Varicose veins of right lower extremity with inflammation Category: Medical Plan: This patient has varicose veins with inflammation. They continue to be a source of discomfort for the patient. The patient has tried conservative treatment with compression, leg elevation and exercise program for over 3 months time. They have been compliant with all treatment. This has provided minimal relief for the patient. I do not anticipate this course of treatment will alter the underlying etiology. The patient has been scheduled for lower extremity venous treatment inclusive of --- right great saphenous vein Cyanoacralate ablation. Risks, benefits, and complications of this procedure has been discussed in detail with the patient including but not limited to bleeding, infection, and the development of a DVT. The patient has demonstrated a clear understanding and has consented. We will schedule the patient as soon as possible. Thank you for allowing us to participate in this patient's care. If there are any questions or concerns please do not hesitate to contact us. Coding Level of Care Code New Pt Level 4 (14387) Diagnoses Varicose veins of right lower extremity with inflammation I83.11
--- OUTSIDE RECORDS SUMMARY | 2024-12-29 11:59 | XMS_ITS | Clinical Summary ---
Author Organization [facility] Address [address] [place] [address] Care Team Providers Care Account Service Associate Name Role Phone Unavailable Primary Care Provider [...] 2017 Zoster Vaccines (1 of 2) 2017 Depression Screening 04/15/2024 COVID-19 Vaccine (1 - 2023-2 5 season) 2024 Influenza Vaccine (#1) 2024 HIB Vaccines Aged [...]
--- OUTSIDE RECORDS SUMMARY | 2024-12-29 11:59 | XMS_ITS | Patient Health Record ---
Author Organization [facility] Address [address] [place] [address] Care Team Providers Care Filenet Architect Name Role Phone Ignacio Padilla Primary Care Provider Unav ailable Josh Billings Unavailable [phone] Allergies No Known Allergies Reason For Referral [...] W/U Status Risk Notes Problem Interstitial myositis (80965379) Interstitial myositis of left foot (M60.172) Active confirmed Plan Of Treatment Pending Test Test Name Order Date X ray : Foot, left 3V 02/12/2023,[id number] TENDON SHEATH/LIGAMENT 1 05/23/202208994,[id number] TENDON SHEATH/LIGAMENT 1 06/02/2019 Insurance Providers Payer Name Payer Address Payer Phone Subscriber Number Group Number Insured Name Patient Relationship to Insured Coverage Start Date Coverage End Date [employer] [address] [place] [address] [id number] Walker Self - patient is the insured Medical (General) History Medical History History ICD Code Arthritis Colitis Hypertension Cholesterol Neutropenia Leukopenia Surgical History Surgery Date(Month/Year) bowel resection
== END 2024-12-29 10:18 | disposition home or self-care (01) ==
LOC: HO.HVS 09:27
PROVIDERS: PCP Nurse Practitioner Family; Visit Provider Surgery Vascular Surgery
DX: I83.11 Varicose veins of right lower extremity with inflammation (principal)
CPT/HCPCS: 99204

== ENCOUNTER 2025-01-01 13:57 | Outpatient (AMB) | payer BC, SELFPAY ==
[2025-01-01 13:57] VITALS: BMI 34.1
--- NOTE | 2025-01-01 13:57 | A.OFFVIS_ITS ---
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 Son No problems noted. Son No problems noted. 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, [employer] Current occupational exposures/hazards: No Cognitive needs: No Hearing needs: No Vision needs: No Physical Exam Vital Signs: BMI result Body Mass Index 34.1 Office Procedures Vascular Office Procedure Details Details: Diagnosis: Right Leg varicose veins with inflammation Procedure: Endovenous Ablation of the right Great Saphenous Vein with VenaSeal Closure System Anesthesia: Local infiltration 5 cc, English Language Learner Tutor: none Estimated Blood Loss: min Specimen: none Duplex ultrasound was used to map out the insufficient saphenous vein, and access was determined and marked on the overlying skin. The depth and diameter of the vein(s) to be treated was documented. The patient was placed supine on the procedure table and the leg was prepped and draped using sterile technique. Ultasound guidance was again used to localize the access site. 1% lidocaine was injected as a local anesthetic in the subcutaneous tissues at the target location in the GSV in the lower leg. Using ultrasound guidance, access was gained at this location with the 19 gauge thin walled access needle and followed by introduction of a short guidewire, location confirmed with ultrasound. A small, 3 mm incision was made at the access site to allow for introduction and placement of the 7 Fr x7cm introducer/dilator. The dilator and guidewire were removed. The 0.035 guidewire from the VenaSeal kit was then introduced and positioned at the saphenofemoral junction using ultrasound guidance. The 80 cm 7 Fr introducer sheath/dilator was positioned 5cm from the saphenofemoral junc tion. The guidewire and dilator were removed, and the remaining sheath was flushed with sterile saline, with the syringe remaining in place prior to the next steps. The cyanoacrylate adhesive was precisely primed into the 5 F delivery catheter and this catheter/syringe combination was attached within the dispenser gun. This assembly was introduced through the 7F sheath and positioned 5 cm caudal of the saphenofemoral junction under ultrasound guidance. The steps from the IFU were followed for dispensing amounts, locations and compression times, 2 aliquots proximally with 3 minutes of compression, and 1 aliquot every 3 cm distally with 30 sec of compression along the course of the vessel. Following the last injection and compression sequence, the catheter and introducer sheath were pulled out from the access site. Hemostasis was achieved with manual compression and an adhesive bandage was applied to the incision. Ultrasound confirmed complete coaptation and closure of the treated segments of the GSV, and the absence of any DVT at the saphenofemoral junction. Treatment time was approximately 4 minutes and the vein length treated was 15 cm. The drapes were removed and the patient cleaned and prepared for discharge. Post op ultrasound check is scheduled for 48-72 hours and the patient was given written post-op instructions. 63364 - Endoven Ther Chem Adhes 1st All charges added?: Procedure code (CPT) selection complete Assessment & Plan Assessment & Plan (1) Varicose veins of right lower extremity with inflammation: Comment: 01/01/2025 - right great saphenous vein Cyanoacralate ablation Code(s): I83.11 - Varicose veins of right lower extremity with inflammation Category: Medical Plan: See op note Coding Level of Care Code Procedure Only Diagnoses Varicose veins of right lower extremity with inflammation I83.11 CPT Codes Details - Vascular 3: 50121 - Endoven Ther Chem Adhes 1st ([id number])
--- OUTSIDE RECORDS SUMMARY | 2025-01-01 14:06 | XMS_ITS | Clinical Summary ---
Author Organization [facility] Address [address] [place] [address] Care Team Providers Care Commander Police Reserves Name Role Phone Unavailable Primary Care Provider [...]
== END 2025-01-01 14:58 | disposition home or self-care (01) ==
LOC: HO.HVS 13:58
PROVIDERS: PCP Nurse Practitioner Family; Visit Provider Surgery Vascular Surgery
DX: I83.11 Varicose veins of right lower extremity with inflammation (principal)
CPT/HCPCS: 36482

== ENCOUNTER → 2025-01-01 13:57 | Outpatient (BNVA) | payer BC, SELFPAY | PROVIDERS: PCP Nurse Practitioner Family; Visit Provider Surgery Vascular Surgery | DX: I83.11 Varicose veins of right lower extremity with inflammation (principal) | CPT/HCPCS: 36482; J2003 ==

== ENCOUNTER 2025-01-04 07:20 | Outpatient (REF) | payer BC, SELFPAY ==
--- NOTE | ~2025-01-04 | CT_ITS ---
CLINICAL HISTORY: K40.90 - Unilateral inguinal hernia, without obstruction or gangrene, no... Exam: CT pelvis without IV contrast Comparison: None Findings: Bilateral indirect inguinal hernia, left hernia is larger and contains fat, right hernia contains fat and short segment of nondilated small bowel. Sigmoid diverticulosis, no acute diverticulitis, otherwise included bowel loops are unremarkable, appendix is partially seen and visualized portion is normal. Bladder appears normal. Prostatomegaly. Atherosclerotic disease. No lymphadenopathy, free fluid or free air in the pelvis. 2 subcutaneous air foci in the medial upper thigh, no fatty stranding or fluid collection. No acute osseous abnormality. Degenerative changes of the included lower lumbar spine and bilateral hips. Impression: 1. Bilateral indirect inguinal hernia as discussed above. 2. 2 subcutaneous air foci in the medial upper thigh, uncertain etiology, please correlate clinically. 3. Sigmoid diverticulosis. This document has been electronically signed by: Yadira Perry MD on 01/04/2025 12:57:00
--- OUTSIDE RECORDS SUMMARY | 2025-01-04 07:23 | XMS_ITS | Clinical Summary ---
Author Organization [facility] Address [address] [place] [address] Care Team Providers Care Wet Machine Tender Name Role Phone Unavailable Primary Care Provider [...]
--- OUTSIDE RECORDS SUMMARY | 2025-01-04 07:23 | XMS_ITS | Patient Health Record ---
Author Organization [facility] Address [address] [place] [address] Care Team Providers Care Environmental Services Tech Name Role Phone Ignacio Padilla Primary Care Provider Unav ailable Josh Billings Unavailable [phone] Allergies No Known Allergies Reason For Referral [...] W/U Status Risk Notes Problem Interstitial myositis ([id number]) Interstitial myositis of left foot (M60.172) Active confirmed Plan Of Treatment Pending Test Test Name Order Date X ray : Foot, left 3V 02/12/2023,[id number] TENDON SHEATH/LIGAMENT 1 05/23/202281875,[id number] TENDON SHEATH/LIGAMENT 1 06/02/2019 Insurance Providers Payer Name Payer Address Payer Phone Subscriber Number Group Number Insured Name Patient Relationship to Insured Coverage Start Date Coverage End Date [employer] Others [address] [place] [address] [phone] [id number] Walker Self - patient is the insured Medical (General) History Medical History History ICD Code Arthritis Colitis Hypertension Cholesterol Neutropenia Leukopenia Surgical History Surgery Date(Month/Year) bowel resection
== END 2025-01-04 07:21 | disposition home or self-care (01) ==
LOC: HO.CT 07:20
PROVIDERS: Visit Provider Nurse Practitioner Family
DX: K40.90 Unilateral inguinal hernia, without obstruction or gangrene, not specified as recurrent (principal)
CPT/HCPCS: 72192

== ENCOUNTER → 2025-01-04 07:22 | Outpatient (BNV) | payer BC, SELFPAY | PROVIDERS: Visit Provider Radiology Diagnostic Radiology | DX: K57.30 Diverticulosis of large intestine without perforation or abscess without bleeding (principal); K40.20 Bilateral inguinal hernia, without obstruction or gangrene, not specified as recurrent | CPT/HCPCS: 72192 ==

== ENCOUNTER 2025-01-14 09:56 | Outpatient (AMB) | payer BC, SELFPAY ==
[2025-01-14 09:57] VITALS: BMI 34.1
--- NOTE | 2025-01-14 09:57 | A.OFFVIS_ITS ---
Vital Signs 01/14/25 09:57 Height 6 ft 3 in Weight 273 lb BMI 34.1 Intake Visit Reasons: 2week follow up R Venaseal 01/01/25 Intake Note: 2 week follow up Right GSV Venaseal. Pt states Right LE feels better. Insurance Executive Required: No Accompanied by: Self / Same As Patient Allergies No Known Allergies Allergy (Verified 01/14/25 09:59) HPI HPI 2week follow up R Venaseal 01/01/25: Details: The patient is a 59-year-old male presenting for follow-up after right great saphenous vein venous seal procedure. The patient underwent a venous seal procedure on the right great saphenous vein on 01/01/2025. Post-procedure, the patient reports no pain, achiness, or swelling in the right leg, indicating a successful outcome. The patient has not experienced any complications and reports overall satisfaction with the procedure. During the examination, the patient expressed concerns about the left leg, where some veins are visible on the calf. The patient is considering further intervention to prevent future complications, given his active lifestyle and desire to avoid issues in the coming years. [facility] Medical History Sleep apnea Colitis Diverticulitis Hemochromatosis Hypertriglyceridemia Hypogonadotropic hypogonadism Plantar fascial fibromatosis of left foot Microhematuria Infectious and parasitic disease Dyslipidemia Leukopenia Arthritis Neutropenia HTN (hypertension) History of deviated nasal septum Surgical History Hx of vasectomy Hx of colonoscopy History of circumcision History of bowel resection Family History Father Pneumonia Mother Lung cancer Sister Breast cancer Brother No problems noted. Son No problems noted. Son No problems noted. 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, [employer] Current occupational exposures/hazards: No Cognitive needs: No Hearing needs: No Vision needs: No Review of Systems Const Reports as per HPI ENT Reports no additional complaints Card Denies chest pain, Denies chest pain at rest and Denies chest pain with activity Resp Denies chest congestion and Denies cough GI Reports no additional complaints Musc Details: pain over varicosities, aching of lower extremities, swelling, cramping, heaviness and tiredness, itching Denies abnormal gait Skin/Breast Reports pruritus and Denies wounds Neuro Reports no additional complaints and Denies abnormal gait Psych Denies no additional complaints Physical Exam Vital Signs: BMI result Body Mass Index 34.1 Const General: cooperative, healthy appearing and comfortable Orientation/consciousness: oriented to person, oriented to place and oriented to time Neck Carotids: no bruits Chest Chest palpation & inspection: normal inspection of the chest and normal palpation of entire chest wall Resp Effort & Inspection: normal respiratory effort and able to speak in complete sentences Cardio Rate: regular rate Heart sounds: S1 normal heart sound present and S2 normal heart sound present Peripheral pulses: Peripheral pulses 2+ throughout GI Inspection: Yes normal to inspection Skin Other: +2 edema, large rope-like varicosities greater than 4 mm left calf CEAP Classification C4 - skin color changes Ep - Etiology Primary As - superficial veins P - reflux General skin exam: dry skin Neuro General: oriented to person, oriented to place and oriented to time Extrem Right lower extremity: full ROM, normal capillary refill and edema Left lower extremity: full ROM, normal capillary refill and edema Psych Mental Status: mental status grossly normal Results Reviewed Results Reviewed: Brief summary of venous insufficiency testing is as follows: right great saphenous vein: Ablated right small saphenous vein: negative right accessory vein: none present left great saphenous vein: Positive left small saphenous vein: negative left accessory vein: none present Please note there is no evidence of any venous aneurysms or significant tortuosity Assessment & Plan Assessment & Plan (1) Varicose veins of left lower extremity with inflammation: Code(s): I83.12 - Varicose veins of left lower extremity with inflammation Category: Medical Plan: This patient has varicose veins with inflammation. They continue to be a source of discomfort for the patient. The patient has tried conservative treatment with compression, leg elevation and exercise program for over 3 months time. They have been compliant with all treatment. This has provided minimal relief for the patient. I do not anticipate this course of treatment will alter the underlying etiology. The patient has been scheduled for lower extremity venous treatment inclusive of --- left great saphenous vein Cyanoacralate ablation. Risks, benefits, and complications of this procedure has been discussed in detail with the patient including but not limited to bleeding, infection, and the development of a DVT. The patient has demonstrated a clear understanding and has consented. We will schedule the patient as soon as possible. Thank you for allowing us to participate in this patient's care. If there are any questions or concerns please do not hesitate to contact us. Coding Level of Care Code Est Pt Level 4 (93776) Diagnoses Varicose veins of left lower extremity with inflammation I83.12
--- OUTSIDE RECORDS SUMMARY | 2025-01-14 11:08 | XMS_ITS | Clinical Summary ---
Author Organization [facility] Address [address] [place] [address] Care Team Providers Care Eyelet Row Marker Name Role Phone Unavailable Primary Care Provider [...] 5 season) 2024 Influenza Vaccine (#1) 2024 RSV Immunization Adult Patie nts (1 - 1-dose 75+ series) 2042 HIB Vaccines Aged Out No longer eligi [...]
--- OUTSIDE RECORDS SUMMARY | 2025-01-14 11:08 | XMS_ITS | Patient Health Record ---
Author Organization [facility] Address [address] [place] [address] Care Team Providers Care Air Export Agent Name Role Phone Ignacio Padilla Primary Care Provider Unav ailable Josh Billings Unavailable [phone] Allergies No Known Allergies Reason For Referral [...] W/U Status Risk Notes Problem Interstitial myositis ([id number]) Interstitial myositis of left foot (M60.172) Active confirmed Plan Of Treatment Pending Test Test Name Order Date X ray : Foot, left 3V 02/12/2023,[id number] TENDON SHEATH/LIGAMENT 1 05/23/202266701,[id number] TENDON SHEATH/LIGAMENT 1 06/02/2019 Insurance Providers Payer Name Payer Address Payer Phone Subscriber Number Group Number Insured Name Patient Relationship to Insured Coverage Start Date Coverage End Date [employer] Others [address] [place] [address] [id number] Walker Self - patient is the insured Medical (General) History Medical History History ICD Code Arthritis Colitis Hypertension Cholesterol Neutropenia Leukopenia Surgical History Surgery Date(Month/Year) bowel resection
== END 2025-01-14 10:16 | disposition home or self-care (01) ==
LOC: HO.HVS 09:56
PROVIDERS: PCP Nurse Practitioner Family; Visit Provider Surgery Vascular Surgery
DX: I83.12 Varicose veins of left lower extremity with inflammation (principal)
CPT/HCPCS: 99214

== ENCOUNTER 2025-01-22 07:38 | Outpatient (AMB) | payer BC, SELFPAY ==
[2025-01-22 07:39] VITALS: BMI 34.1
--- NOTE | 2025-01-22 07:39 | A.OFFVIS_ITS ---
Vital Signs 01/22/25 07:39 Height 6 ft 3 in Weight 273 lb BMI 34.1 Intake Visit Reasons: Left GSV Venaseal Dry Chain Offbearer Required: No Accompanied by: Self / Same As Patient Allergies No Known Allergies Allergy (Verified 01/22/25 07:40) PFSH Medical History Sleep apnea Colitis Diverticulitis Hemochromatosis Hypertriglyceridemia Hypogonadotropic hypogonadism Plantar fascial fibromatosis of left foot Microhematuria Infectious and parasitic disease Dyslipidemia Leukopenia Arthritis Neutropenia HTN (hypertension) History of deviated nasal septum Surgical History Hx of vasectomy Hx of colonoscopy History of circumcision History of bowel resection Family History Father Pneumonia Mother Lung cancer Sister Breast cancer Brother No problems noted. Son No problems noted. Son No problems noted. 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, [employer] Current occupational exposures/hazards: No Cognitive needs: No Hearing needs: No Vision needs: No Physical Exam Vital Signs: BMI result Body Mass Index 34.1 Office Procedures Vascular Office Procedure Details Details: Diagnosis: Left Leg varicose veins with inflammation Procedure: Endovenous Ablation of the left Great Saphenous Vein with VenaSeal C losure System Anesthesia: Local infiltration 5 cc, Change Management: none Estimated Blood Loss: min Specimen: none Duplex ultrasound was used to map out the insufficient saphenous vein, and access was determined and marked on the overlying skin. The depth and diameter of the vein(s) to be treated was documented. The patient was placed supine on the procedure table and the leg was prepped and draped using sterile technique. Ultasound guidance was again used to localize the access site. 1% lidocaine was injected as a local anesthetic in the subcutaneous tissues at the target location in the GSV in the lower leg. Using ultrasound guidance, access was gained at this location with the 19 gauge thin walled access needle and followed by introduction of a short guidewire, location confirmed with ultrasound. A small, 3 mm incision was made at the access site to allow for introduction and placement of the 7 Fr x7cm introducer/dilator. The dilator and guidewire were removed. The 0.035 guidewire from the VenaSeal kit was then introduced and positioned at the saphenofemoral junction using ultrasound guidance. The 80 cm 7 Fr introducer sheath/dilator was positioned 5cm from the saphenofemoral melecio ction. The guidewire and dilator were removed, and the remaining sheath was flushed with sterile saline, with the syringe remaining in place prior to the next steps. The cyanoacrylate adhesive was precisely primed into the 5 F delivery catheter and this catheter/syringe combination was attached within the dispenser gun. This assembly was introduced through the 7F sheath and positioned 5 cm caudal of the saphenofemoral junction under ultrasound guidance. The steps from the IFU were followed for dispensing amounts, locations and compression times, 2 aliquots proximally with 3 minutes of compression, and 1 aliquot every 3 cm distally with 30 sec of compression along the course of the vessel. Following the last injection and compression sequence, the catheter and introducer sheath were pulled out from the access site. Hemostasis was achieved with manual compression and an adhesive bandage was applied to the incision. Ultrasound confirmed complete coaptation and closure of the treated segments of the GSV, and the absence of any DVT at the saphenofemoral junction. Treatment time was approximately 50 minutes and the vein length treated was 6 cm. The drapes were removed and the patient cleaned and prepared for discharge. Post op ultrasound check is scheduled for 48-72 hours and the patient was given written post-op instructions. 58096 - Endoven Ther Chem Adhes 1st All charges added?: Procedure code (CPT) selection complete Assessment & Plan Assessment & Plan (1) Varicose veins of left lower extremity with inflammation: Comment: 01/22/2025 - left great saphenous vein Cyanoacralate ablation Code(s): I83.12 - Varicose veins of left lower extremity with inflammation Category: Medical Plan: See op note Coding Level of Care Code Procedure Only Diagnoses Varicose veins of left lower extremity with inflammation I83.12 CPT Codes Details - Vascular 3: 06918 - Endoven Ther Chem Adhes 1st ([id number])
== END 2025-01-22 09:25 | disposition home or self-care (01) ==
LOC: HO.HVS 07:39
PROVIDERS: PCP Nurse Practitioner Family; Visit Provider Surgery Vascular Surgery
DX: I83.12 Varicose veins of left lower extremity with inflammation (principal)
CPT/HCPCS: 36482

== ENCOUNTER → 2025-01-22 07:38 | Outpatient (BNVA) | payer BC, SELFPAY | PROVIDERS: PCP Nurse Practitioner Family; Visit Provider Surgery Vascular Surgery | DX: I83.12 Varicose veins of left lower extremity with inflammation (principal) | CPT/HCPCS: 36482; J2003 ==

== ENCOUNTER 2025-02-04 08:42 | Outpatient (AMB) | payer BC, SELFPAY ==
--- NOTE | 2025-02-04 08:54 | A.OFFVIS_ITS ---
Vital Signs 02/04/25 08:54 Height 6 ft 3 in Intake Visit Reasons: 2 week follow up L GSV Venaseal 01/22 Intake Note: Patient present for 2 week follow up left GSV venaseal. Patient states he is having pain , tenderness and issues with his range of motion. Accompanied by: Self / Same As Patient Allergies No Known Allergies Allergy (Verified 02/04/25 08:57) HPI Comments Details: The patient is a 59-year-old male presenting for follow-up after left great saphenous vein ablation. The patient underwent left great saphenous vein ablation on 01/22/2025, following a previous right great saphenous vein ablation on 01/01/2025. He reports persistent pain and a irritation in the left leg, which has not improved since the procedure. The patient describes the pain as burning, similar to a topical burn, and notes that it is consistent along the leg. He has been advised to use warm compresses and take Advil or Motrin to alleviate the symptoms. The patient has not returned to normal activities due to pain during range of motion exercises. There is no itching reported, and no signs of an allergic reaction have been observed. [facility] Medical History Sleep apnea Colitis Diverticulitis Hemochromatosis Hypertriglyceridemia Hypogonadotropic hypogonadism Plantar fascial fibromatosis of left foot Microhematuria Infectious and parasitic disease Dyslipidemia Leukopenia Arthritis Neutropenia HTN (hypertension) History of deviated nasal septum Surgical History Hx of vasectomy Hx of colonoscopy History of circumcision History of bowel resection Family History Father Pneumonia Mother Lung cancer Sister Breast cancer Brother No problems noted. Son No problems noted. Son No problems noted. 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, [employer] Current occupational exposures/hazards: No Cognitive needs: No Hearing needs: No Vision needs: No Review of Systems Const All systems reviewed & are unremarkable except as noted in HPI and below Reports no additional complaints ENT Reports Normal hearing present Card Denies chest pain, Denies chest pain at rest, Denies chest pain with activity and Denies pedal edema Resp Denies cough GI Denies abdominal pain Musc Denies abnormal gait, Denies muscle cramps and Denies radiating pain into limb Skin/Breast Denies skin ulcer and Denies wounds Neuro Reports Normal hearing present and Denies abnormal gait Psych Reports no additional complaints Physical Exam Const General: cooperative, healthy appearing and comfortable Orientation/consciousness: oriented to person, oriented to place and oriented to time HEENT Head: Yes normal to inspection Neck Neck: Yes normal visual inspection Carotids: no bruits Chest Chest palpation & inspection: normal inspection of the chest Resp Effort & Inspection: normal respiratory effort and able to speak in complete sentences Auscultation: clear to auscultation bilaterally, no crackles, no rales, no rhonchi and no wheezes Cardio Rate: regular rate Rhythm: regular rhythm Heart sounds: S1 normal heart sound present and S2 normal heart sound present Bruits: no carotid bruits Peripheral pulses: Peripheral pulses 2+ throughout GI Inspection: Yes normal to inspection Skin Wounds: no wounds Hair: normal Neuro General: oriented to person, oriented to place and oriented to time Cranial nerves: Yes CN's II-XII intact bilaterally and Yes Normal hearing present Cognition (Neuro): normal cognition Motor exam (neuro): 5/5 motor strength present throughout Extrem Other: venous exam: Left great saphenous vein phlebitis in particular around the knee area. General: No clubbing, No cyanosis and No edema Psych Appearance: grossly normal Mental Status: mental status grossly normal Speech and movement: Normal speech and movement present Assessment & Plan Assessment & Plan (1) Varicose veins of right lower extremity with inflammation: Comment: 01/01/2025 - right great saphenous vein Cyanoacralate ablation Code(s): I83.11 - Varicose veins of right lower extremity with inflammation Category: Medical Plan: See below (2) Varicose veins of left lower extremity with inflammation: Comment: 01/22/2025 - left great saphenous vein Cyanoacralate ablation Code(s): I83.12 - Varicose veins of left lower extremity with inflammation Category: Medical Plan: I discussed with the patient that the symptoms of phlebitis should improve over time with the use of warm compresses and anti-inflammatory medications like Advil or Motrin. I advised him to return for a follow-up in two weeks and to contact us if he notices any worsening symptoms, such as red blotchy spots or itching, which could indicate an allergic reaction. Plan Patient was informed and verbally consented to the use of an ambient scribe for clinic note documentation during this visit. Patient Instructions: - Use warm compresses on the affected area to reduce symptoms. - Take Advil or Motrin as needed for pain relief. - Monitor for any worsening symptoms, such as red blotchy spots or itching, and contact the clinic if these occur. - Return for a follow-up appointment in two weeks. Coding Level of Care Code Est Pt Level 3 (79919) Diagnoses Varicose veins of right lower extremity with inflammation I83.11 Varicose veins of left lower extremity with inflammation I83.12
--- OUTSIDE RECORDS SUMMARY | 2025-02-04 09:19 | XMS_ITS | Clinical Summary ---
Author Organization [facility] Address [address] [place] [address] Care Team Providers Care Rn Ortho Name Role Phone Unavailable Primary Care Provider [...]
== END 2025-02-04 09:10 | disposition home or self-care (01) ==
LOC: HO.HVS 08:43
PROVIDERS: PCP Nurse Practitioner Family; Visit Provider Surgery Vascular Surgery
DX: I83.11 Varicose veins of right lower extremity with inflammation (principal); I83.12 Varicose veins of left lower extremity with inflammation
CPT/HCPCS: 99213

== ENCOUNTER 2025-02-18 08:55 | Outpatient (AMB) | payer BC, SELFPAY ==
--- NOTE | 2025-02-18 09:08 | MHC.OFFVIS ---
Intake Visit Reasons: 2 week follow up L leg check Intake Note: 2 week follow up Leg check s/p Left GSV Venaseal 01/22/25 and hx of Right GSV Venaseal 01/01/25. Pt states leg are doing much better Rotary Dryer Operator Required: No Accompanied by: Self / Same As Patient Allergies No Known Allergies Allergy (Verified 02/18/25 09:10) HPI HPI 2 week follow up L leg check: Details: The patient is a 59-year-old male presenting for a two-week follow-up after undergoing a left great saphenous vein ablation. He experienced post-procedure phlebitis and irritation in the left leg, which has since improved with no current pain reported. The patient reports the presence of lumpy areas in the legs, which do not cause any discomfort. He has been advised to use compression therapy and elevate his legs when resting to aid in recovery. The patient has been encouraged to maintain physical activity, including walking, to promote circulation and overall leg health. [facility] Medical History Sleep apnea Colitis Diverticulitis Hemochromatosis Hypertriglyceridemia Hypogonadotropic hypogonadism Plantar fascial fibromatosis of left foot Microhematuria Infectious and parasitic disease Dyslipidemia Leukopenia Arthritis Neutropenia HTN (hypertension) History of deviated nasal septum Surgical History Hx of vasectomy Hx of colonoscopy History of circumcision History of bowel resection Family History Father Pneumonia Mother Lung cancer Sister Breast cancer Brother No problems noted. Son No problems noted. Son No problems noted. 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, [employer] Current occupational exposures/hazards: No Cognitive needs: No Hearing needs: No Vision needs: No Review of Systems Const All systems reviewed & are unremarkable except as noted in HPI and below Reports no additional complaints ENT Reports Normal hearing present Card Denies chest pain, Denies chest pain at rest, Denies chest pain with activity and Denies pedal edema Resp Denies cough GI Denies abdominal pain Musc Denies abnormal gait, Denies muscle cramps and Denies radiating pain into limb Skin/Breast Denies skin ulcer and Denies wounds Neuro Reports Normal hearing present and Denies abnormal gait Psych Reports no additional complaints Physical Exam Const General: cooperative, healthy appearing and comfortable Orientation/consciousness: oriented to person, oriented to place and oriented to time HEENT Head: Yes normal to inspection Neck Neck: Yes normal visual inspection Carotids: no bruits Chest Chest palpation & inspection: normal inspection of the chest Resp Effort & Inspection: normal respiratory effort and able to speak in complete sentences Auscultation: clear to auscultation bilaterally, no crackles, no rales, no rhonchi and no wheezes Cardio Rate: regular rate Rhythm: regular rhythm Heart sounds: S1 normal heart sound present and S2 normal heart sound present Bruits: no carotid bruits Peripheral pulses: Peripheral pulses 2+ throughout GI Inspection: Yes normal to inspection Skin Wounds: no wounds Hair: normal Neuro General: oriented to person, oriented to place and oriented to time Cranial nerves: Yes CN's II-XII intact bilaterally and Yes Normal hearing present Cognition (Neuro): normal cognition Motor exam (neuro): 5/5 motor strength present throughout Extrem Other: venous exam: No significant superficial varicosities or spider telangiectasias, minimal edema General: No clubbing, No cyanosis and No edema Psych Appearance: grossly normal Mental Status: mental status grossly normal Speech and movement: Normal speech and movement present Assessment & Plan Assessment & Plan (1) Varicose veins of left lower extremity with inflammation: Comment: 01/22/2025 - left great saphenous vein Cyanoacralate ablation Code(s): I83.12 - Varicose veins of left lower extremity with inflammation Category: Medical Plan: The patient has done extremely well with all venous treatments. Patient's may often experience postprocedure phlebitic episodes and I have discussed with the patient use of warm compresses and NSAIDS if tolerated for pain discomfort. In addition, I have discussed continued conservative measures including use of compression, leg elevation, and exercise. The patient was also given an information sheet regarding appropriate use of compression stockings and future purchases. Thank you for allowing us to care for your patient with venous disease. (2) Varicose veins of right lower extremity with inflammation: Comment: 01/01/2025 - right great saphenous vein Cyanoacralate ablation Code(s): I83.11 - Varicose veins of right lower extremity with inflammation Category: Medical Plan: See above Coding Level of Care Code Est Pt Level 3 (43718) Diagnoses Varicose veins of left lower extremity with inflammation I83.12 Varicose veins of right lower extremity with inflammation I83.11
--- OUTSIDE RECORDS SUMMARY | 2025-02-18 09:35 | XMS_ITS | Clinical Summary ---
Author Organization [facility] Address [address] [place] [address] Care Team Providers Care Blueprint Duplicator Name Role Phone Unavailable Primary Care Provider [...]
--- OUTSIDE RECORDS SUMMARY | 2025-02-18 09:36 | XMS_ITS | Patient Health Record ---
Author Organization [facility] Address [address] [place] [address] Care Team Providers Care Dental Professional Name Role Phone Ignacio Padilla Primary Care Provider Unav ailable Josh Billings Unavailable [phone] Allergies No Known Allergies Reason For Referral [...] W/U Status Risk Notes Problem Interstitial myositis (25007677) Interstitial myositis of left foot (M60.172) Active confirmed Plan Of Treatment Pending Test Test Name Order Date X ray : Foot, left 3V 02/12/2023,[id number] TENDON SHEATH/LIGAMENT 1 05/23/202252597,[id number] TENDON SHEATH/LIGAMENT 1 06/02/2019 Insurance Providers Payer Name Payer Address Payer Phone Subscriber Number Group Number Insured Name Patient Relationship to Insured Coverage Start Date Coverage End Date [employer] [address] [place] [address] [phone] [id number] Self - patient is the insured Medical (General) History Medical History History ICD Code Arthritis Colitis Hypertension Cholesterol Neutropenia Leukopenia Surgical History Surgery Date(Month/Year) bowel resection
== END 2025-02-18 09:49 | disposition home or self-care (01) ==
PROVIDERS: PCP Nurse Practitioner Family; Visit Provider Surgery Vascular Surgery
DX: I83.12 Varicose veins of left lower extremity with inflammation (principal); I83.11 Varicose veins of right lower extremity with inflammation
CPT/HCPCS: 99213

== ENCOUNTER 2025-03-02 08:17 | Outpatient (REF) | payer BC, SELFPAY ==
--- OUTSIDE RECORDS SUMMARY | 2025-03-03 15:54 | XMS_ITS | Patient Health Record ---
Author Organization [facility] Address [address] [place] [address] Care Team Providers Care Package Sorter Name Role Phone Ignacio Padilla Primary Care Provider Unav ailable Josh Billings Unavailable [phone] Allergies No Known Allergies Reason For Referral [...] W/U Status Risk Notes Problem Interstitial myositis (95281661) Interstitial myositis of left foot (M60.172) Active confirmed Plan Of Treatment Pending Test Test Name Order Date X ray : Foot, left 3V 02/12/2023,[id number] TENDON SHEATH/LIGAMENT 1 05/23/202254410,[id number] TENDON SHEATH/LIGAMENT 1 06/02/2019 Insurance Providers Payer Name Payer Address Payer Phone Subscriber Number Group Number Insured Name Patient Relationship to Insured Coverage Start Date Coverage End Date [employer] [address] [place] [address] [id number] Self - patient is the insured Medical (General) History Medical History History ICD Code Arthritis Colitis Hypertension Cholesterol Neutropenia Leukopenia Surgical History Surgery Date(Month/Year) bowel resection
--- OUTSIDE RECORDS SUMMARY | 2025-03-03 15:54 | XMS_ITS | Clinical Summary ---
Author Organization [facility] Address [address] [place] [address] Care Team Providers Care Building Pressure Washer Name Role Phone Unavailable Primary Care Provider [...] Depression Screening 04/15/2024 COVID-19 Vaccine (1 - 2024-2 6 season) 2024 Influenza Vaccine (#1) 2024 RSV [...]
== END 2025-03-02 08:18 | disposition home or self-care (01) ==
LOC: HO.HOSX 08:17
PROVIDERS: Visit Provider Orthopaedic Surgery
DX: Z13.89 Encounter for screening for other disorder (principal)

== ENCOUNTER 2025-03-25 09:37 | Outpatient (AMB) | payer BC, SELFPAY ==
--- NOTE | 2025-03-25 09:39 | MHC.OFFVIS ---
Vital Signs 03/25/25 09:45 Height 6 ft 3 in Weight 277 lb 4 oz BMI 34.7 Intake Visit Reasons: Bilateral inguinal hernia Intake Note: Patient presents for an assessment for bilteral inguinal hernias. Pt c/o; B/L inguinal hernias, occasional sharp pain, denies changes in bowel habits. Pelvis CT-01/04/2025 Control Systems Drafting Officer Required: No Accompanied by: Self / Same As Patient Allergies No Known Allergies Allergy (Verified 03/29/25 08:17) Medication List - Last Reconciled 03/25/25 by Nick Alves MD lisinopril 40 mg PO DAILY 90 days omega-3 fatty acids 1,000 mg PO BID rosuvastatin 20 mg PO DAILY 90 days sildenafil 50 mg PO DAILY PRN 30 days HPI HPI Bilateral inguinal hernia: Details: 60-year-old male referred for bilateral inguinal hernias. He had undergone a physical examination by his primary care physician about 2 months ago and was told that he had bilateral inguinal hernias. This were confirmed on a CAT scan. He does state that he seems to be noticing mild discomfort on both groins for about a year now. He says that he would notice this reducible mass as well on both sides once in a while. Otherwise, he says that he did not have any significant pain. He says he is healthy overall. He did have surgery for colon resection for diverticulitis about 10 years ago in [place]. He also had a procedure for varicose veins on the lower extremities recently. [facility] Medical History Sleep apnea Colitis Diverticulitis Hemochromatosis Hypertriglyceridemia Hypogonadotropic hypogonadism Plantar fascial fibromatosis of left foot Microhematuria Infectious and parasitic disease Dyslipidemia Leukopenia Arthritis Neutropenia HTN (hypertension) History of deviated nasal septum Surgical History Hx of vasectomy Hx of colonoscopy History of circumcision History of bowel resection Family History Father Pneumonia Mother Lung cancer Sister Breast cancer Brother No problems noted. Son No problems noted. Son No problems noted. 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[employer] Current occupational exposures/hazards: No Cognitive needs: No Hearing needs: No Vision needs: No Review of Systems Const Denies chills and Denies fever(s) Card Denies chest pain, Denies dyspnea and Denies dyspnea on exertion Resp Denies cough, Denies dyspnea and Denies dyspnea on exertion GI Denies hematochezia and Denies change in bowel habits Denies hematuria and Denies difficulty urinating Musc Denies back pain and Denies limited range of motion Neuro Denies focal weakness and Denies convulsions Psych Denies depression and Denies mood swings Physical Exam Vital Signs: BMI result Body Mass Index 34.7 Const General: comfortable and no acute distress Orientation/consciousness: patient oriented x3 Neck Neck: Yes no lymphadenopathy Resp Auscultation: clear to auscultation bilaterally Cardio Rhythm: regular rhythm GI Other: Palpable inguinal hernias, left and right side, left bigger than the right, both reducible Palpation (GI): Soft to palpation, nontender and no guarding Neuro General: patient oriented x3 Assessment & Plan Assessment & Plan (1) Bilateral inguinal hernia: Code(s): K40.20 - Bilateral inguinal hernia, without obstruction or gangrene, not specified as recurrent Category: Medical Plan: He has bilateral inguinal hernias, both reducible, left larger than the right. I have reviewed his CAT scan and this shows a non obstructed small bowel loop within the right inguinal hernia. The left inguinal hernia is fat containing He has minimal symptoms but wants to proceed with repair I explained the technique of open repair of bilateral gangrenous with mesh placement. I reviewed the risks including but not limited to bleeding, infections, bowel injury. The vas deferens, recurrence, as well as the benefits and alternatives. I reviewed with him what to expect postoperatively. He understands and wants to proceed. Orders: Referrals General Surgery Procedure Notification K40.20 - Bilateral inguinal hernia, without obstruction or gangrene, not specified as recurrent Coding Level of Care Code New Pt Level 3 (27222) Diagnoses Bilateral inguinal hernia K40.20
[2025-03-25 09:45] VITALS: BMI 34.7
== END 2025-03-25 09:59 | disposition home or self-care (01) ==
LOC: HO.HGS 09:38
PROVIDERS: PCP Nurse Practitioner Family; Visit Provider Surgery
DX: K40.20 Bilateral inguinal hernia, without obstruction or gangrene, not specified as recurrent (principal)
CPT/HCPCS: 99203

== ENCOUNTER 2025-03-27 07:10 | Outpatient (REF) | payer BC, SELFPAY ==
--- OUTSIDE RECORDS SUMMARY | 2025-03-27 07:12 | XMS_ITS | Clinical Summary ---
Author Organization [facility] Address [address] [place] [address] Care Team Providers Care Boiler Erector Name Role Phone Unavailable Primary Care Provider [...]
--- OUTSIDE RECORDS SUMMARY | 2025-03-27 07:12 | XMS_ITS | Patient Health Record ---
Author Organization [facility] Karuna Harris Address [address] [address] Care Team Providers Care Poultry Raiser Name Role Phone Ignacio Padilla Primary Care Provider Unav ailable Josh Billings Unavailable [phone] Allergies No Known Allergies Reason For Referral [...] W/U Status Risk Notes Problem Interstitial myositis (13077197) Interstitial myositis of left foot (M60.172) Active confirmed Plan Of Treatment Pending Test Test Name Order Date X ray : Foot, left 3V 02/12/2023,[id number] TENDON SHEATH/LIGAMENT 1 05/23/202293384,[id number] TENDON SHEATH/LIGAMENT 1 06/02/2019 Insurance Providers Payer Name Payer Address Payer Phone Subscriber Number Group Number Insured Name Patient Relationship to Insured Coverage Start Date Coverage End Date [employer] [address] [place] [address] [id number] Cole Walker Self - patient is the insured Medical (General) History Medical History History ICD Code Arthritis Colitis Hypertension Cholesterol Neutropenia Leukopenia Surgical History Surgery Date(Month/Year) bowel resection
[2025-03-27 11:35] LABS: MANUAL DIFF FLAG NO
[2025-03-27 11:48] LABS: Hematocrit 46.7 % (42.0-52.0); Hemoglobin 15.4 g/dl (14.0-18.0); Imm Gran Abs Auto 0.00 X10*3/uL (0.00-0.03); Imm Gran Pct Auto 0.0 % (0.0-0.4); Lymphocytes Absolute Auto 1.6 X10*3/uL (1.2-4.9); Mean Corpuscular HGB Conc 33.0 g/dl (31.0-36.0); Mean Corpuscular Hemoglobin 30.8 pg (27.0-33.0); Mean Corpuscular Volume 93.4 fL (80.0-98.0); NRBC Abs Auto 0.000 X10*3/uL (0.0-0.012); NRBC Pct Auto 0.0 /100WBC (0.0-0.2); Platelet Count 287 X10*3/uL (160-400); Red Blood Count 5.00 X10*6/uL (4.60-5.80); White Blood Count 4.7 X10*3/uL (4.8-10.8)
[2025-03-27 12:03] LABS: Appearance Urine Clear; Glucose Urine UA Negative (Negative); PH 6.5 (5.0-9.0); Specific Gravity - Urine 1.020 (1.005-1.025); UMIC TRIGGER UACC YES
[2025-03-27 12:10] LABS: Alanine Aminotransferase 43 U/L (0-40); Albumin Level 4.5 g/dL (3.5-5.0); Alkaline Phosphatase 58 U/L (39-117); Anion Gap 11 (12-20); Aspartate Amino Transferase 31 U/L (5-37); Blood Urea Nitrogen 15 mg/dL (9-16); Calcium 9.0 mg/dL (8.4-10.2); Carbon Dioxide 27 mmol/L (22-29); Chloride 106 mmol/L (96-108); Cholesterol 173 mg/dL (<200); Estimated Glomerular Filt Rate > 60; HDL Cholesterol 30 mg/dL (>40); Potassium 3.7 mmol/L (3.3-5.1); Sodium 140 mmol/L (135-145); Total Protein 7.3 g/dL (6.5-8.0); Triglycerides 300 mg/dL (<150)
== END 2025-03-27 07:11 | disposition home or self-care (01) ==
LOC: HO.HMGCLDS 07:10
PROVIDERS: PCP Nurse Practitioner Family; Visit Provider Nurse Practitioner Family
DX: Z12.5 Encounter for screening for malignant neoplasm of prostate (principal); E55.9 Vitamin D deficiency, unspecified; I10 Essential (primary) hypertension
CPT/HCPCS: 36415; 80053; 80061; 81001; 81003; 82306; 84153; 84443; 85025

== ENCOUNTER 2025-03-29 08:11 | Outpatient (AMB) | payer BC, SELFPAY ==
[2025-03-29 08:14] VITALS: BP 138/84; PULSE 76; RESP 16; O2SAT 95; BMI 35.0
--- NOTE | 2025-03-29 08:14 | A.OFFPC_ITS ---
Vital Signs 03/29/25 08:14 Height 6 ft 3 in Weight 280 lb BMI 35.0 BP 138/84 Blood Pressure Location Lt brachial Position Sitting Respiration 16 Pulse 76 Pulse Source Pulse Oximeter Pulse Oximetry (%) 95 Oxygen Delivery Method Room Air Intake Visit Reasons: 6m follow up Tank Tender Required: No Accompanied by: Self / Same As Patient Allergies No Known Allergies Allergy (Verified 03/29/25 08:17) Tobacco use date assessed: 03/29/25 Dental Screening Dental Screen Date: 03/29/25 Did you have a dental visit in the last 12 months?: Yes Did you have a dental problem in the last 6 months where you did not have access to dental care?: No Was dental information given to patient?: Patient has dentist HPI 6m follow up HPI Details Chief Complaint Patient presents for a six-month follow-up visit. History of Present Illness The patient is a 60 year old male presenting with a six-month follow-up and discussion of recent lab results. Recent labs show elevated triglycerides, for which he has been taking omega-3 fatty acids once a day instead of the prescribed twice a day. Lab results also indicate microscopic hematuria and proteinuria. He denies any history of kidney stones. He has a history of stable blood pressure and reports drinking a lot of water. Social History - Tobacco Use: Patient denies ever smoki ng. Health Maintenance - He was encouraged to monitor his blood pressure at home. Review of Systems - Genitourinary: Denies history of kidne y stones. -denies any cp, sob, hester, blurred vision Physical Exam General: Cooperative, healthy appearing, comfortable, no acute distress and well developed Orientation: Patient oriented x3 Limitations: No limitations Head: Normal to inspection Ears: Hearing grossly normal bilaterally Nose: Normal external nose present Face and sinus: Normal facial exam Eyes: Appearance normal, both eyes and all related structures Neck: Normal visual inspection and Yes full ROM Respiratory: Normal respiratory effort and able to speak in complete sentences. Clear to auscultation bilaterally Cardiovascular: Regular rate and rhythm. No edema GI: Normal to inspection. Soft to palpation and nontender Skin: No rashes or lesions noted Neuro: Patient oriented x3 Extremities: Normal to inspection Results - Labs: - Triglycerides: Elevated. - Urinalysis: Positive for microscopic h ematuria and proteinuria. Plan 1. Hypertriglyceridemia The patient has been taking omega-3 fatty acids once a day instead of the recommended twice-daily dose. A prescription refill for omega-3 fatty acids will be provided with instructions to take it twice a day. A lipid panel will be rechecked in approximately 2 months to assess response to the increased dosage. 2. Microscopic Hematuria The patient presents with microscopic hematuria. He denies any history of kidney stones or smoking. A workup will be initiated including a urine cytology, urine culture, and a CT urogram. 3. Proteinuria The patient has persistent proteinuria. He will be referred to nephrology for further evaluation and treatment. 4. Hypertension The patient's blood pressure is currently stable. He was encouraged to monitor his blood pressure at home and report the values. Discussion Notes I advised the patient that his triglycerides are still elevated and he should be taking his omega-3 fatty acid supplement twice daily, not once. I will refill this for him and plan to recheck his cholesterol in two months. We discussed the findings of microscopic hematuria and proteinuria. To further investigate the hematuria, I will order a urine cytology, urine culture, and a CT urogram. For the proteinuria, I am placing a referral to nephrology for specialist evaluation and management. I encouraged him to continue monitoring his blood pressure at home and to send me the readings, noting that his pressure is currently stable. Patient Instructions - Take your omega-3 fatty acid medicatio n twice every day as prescribed. - We will check your cholesterol again i n about 2 months. - Please complete the following tests: a urine cytology, a urine culture, and a CT urogram scan to check for the cause of blood in your urine. - We are referring you to a kidney speci alist (carbon furnace operator helper) for the protein in your urine. - Please continue to check your blood pr essure at home and send the results to our office. 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 Son No problems noted. Son No problems noted. 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 1. Little interest or pleasure in doing things: not at all 2. Feeling down, depressed, or hopeless: not at all 3. Trouble falling or staying asleep, or sleeping too much: not at all 4. Feeling tired or having little energy: not at all 5. Poor appetite or overeating: not at all 6. Feeling bad about yourself - or that you are a failure or have let yourself or your family down: not at all 7. Trouble concentrating on things, such as reading the newspaper or watching television: not at all 8. Moving or speaking so slowly that other people could have noticed. Or the opposite - being so fidgety or restless that you have been moving around a lot more than usual: not at all 9. Thoughts that you would be better off or of hurting yourself in some way: not at all Total score: 0 Depression Screening Interpretation: Negative Depression Screening Done: Yes 05338 - PHQ-9 Billing: Yes Source: Developed by Drs. Maynor Lee, Josi Joy, Carl Tobin and colleagues, with an educational jessica from [employer]. Thrive Questionnaire Date Thrive assessed: 09/23/24 I am a: Patient What is your living situation today?: I have a steady place to live Within the past 12 months, did the food you bought not last and you didn't have the money to get more?: Never true Within the past 12 months, did you worry whether your food would run out before you got money to buy more?: Never true Do you have trouble paying for medicines?: No Do you have trouble getting transportation to medical appointments?: No Do you have trouble paying your heating and electricity bill?: No Do you have trouble taking care of your child, family member or friend?: No Do you have trouble with day-to-day activities such as bathing, preparing meals, shopping, managing finances, etc.?: No Are you currently unemployed and looking for a job?: No Are you interested in more education?: Yes Please select the resources that you would like help with: None Currently or been in a relationship where the following occur: No concerns reported THRIVE Score: 0 JG-7 AMB Questionnaire JG-7 Date JG - 7 assessed: 03/29/25 Feeling nervous, anxious, or on edge: 0 = Not at all Not being able to stop or control worryin = Not at all Worrying too much about different things: 0 = Not at all Trouble relaxin = Not at all Being so restless that it is hard to sit still: 0 = Not at all Becoming easily annoyed or irritable: 0 = Not at all Feeling afraid as if something awful might happen: 0 = Not at all Total JG-7 score (0-4 normal; 5-9 mild; 10-14 moderate; 15-21 severe): 0 Source: Developed by Drs. Maynor Lee, Josi Joy, Carl Tobin and colleagues, with an educational jessica from [employer]. JG-7 Assessment Billing JG-7 Assessment Tool: JG-7 Assessment 26395 Physical exam (Primary Care) Vital Signs: Last Vital Signs Pulse 76 03/29/25 08:14 Resp 16 03/29/25 08:14 BP 138/84 03/29/25 08:14 Pulse Ox 95 03/29/25 08:14 Oxygen Delivery Method Room Air 03/29/25 08:14 BMI result Body Mass Index 35.0 Tobacco/Smoking Status: Tobacco use Status Tobacco use date assessed 03/29/25 03/29/25 08:20 Patient Tobacco Use Status Never used Tobacco 03/29/25 08:20 e-Cigarette/Vaping Use Never Used 03/29/25 08:20 PHQ-9: PHQ-9 Score PHQ-9: Total score 0 03/29/25 08:20 Depression Screening Interpretation: Negative Thrive Assessment: Date of Thrive Assessment Date Thrive assessed 09/23/24 03/29/25 08:20 Currently or been in a relationship where the following occur: No concerns reported Coding Level of Care Code Est Pt Level 3 (55892) Diagnoses Microhematuria R31.29 Proteinuria R80.9 Dyslipidemia E78.5 Hypertriglyceridemia E78.1 Additional Codes JG-7 Assessment Billing - JG-7 Assessment Tool: JG-7 Assessment 73405 ([id number]) PHQ-9 - 21892 - PHQ-9 Billing: Yes ([id number]) Assessment & Plan Assessment & Plan (1) Microhematuria: Code(s): R31.29 - Other microscopic hematuria Category: Medical (2) Proteinuria: Code(s): R80.9 - Proteinuria, unspecified Category: Medical (3) Dyslipidemia: Code(s): E78.5 - Hyperlipidemia, unspecified Category: Medical (4) Hypertriglyceridemia: Code(s): E78.1 - Pure hyperglyceridemia Category: Medical Plan . Orders: Orders UA CC w/rflx Micro + Cult Today R31.29 - Other microscopic hematuria Urine Culture Today R31.29 - Other microscopic hematuria Lipid Panel 2 Months E78.1 - Pure hyperglyceridemia, E78.5 - Hyperlipidemia, unspecified Urine Cytology Today R31.29 - Other microscopic hematuria Comprehensive [place]. Panel Fast 2 Months E78.1 - Pure hyperglyceridemia, E78.5 - Hyperlipidemia, unspecified Referrals Nephrology Referral R80.9 - Proteinuria, unspecified Medications: Refilled omega-3 fatty acids 1,000 mg PO BID 180 caps 1RF E78.1 - Pure hyperglyceridemia
--- OUTSIDE RECORDS SUMMARY | 2025-03-29 08:48 | XMS_ITS | Patient Health Record ---
Author Organization [facility] Karuna Harris Address [address] [place] [address] Care Team Providers Care Welding Machine Operator Helper Arc Name Role Phone Ignacio Padilla Primary Care Provider Unav ailable Josh Billings Unavailable [phone] Allergies No Known Allergies Reason For Referral [...] W/U Status Risk Notes Problem Interstitial myositis ([id number]) Interstitial myositis of left foot (M60.172) Active confirmed Plan Of Treatment Pending Test Test Name Order Date X ray : Foot, left 3V 02/12/2023,[id number] TENDON SHEATH/LIGAMENT 1 05/23/202242171,[id number] TENDON SHEATH/LIGAMENT 1 06/02/2019 Insurance Providers Payer Name Payer Address Payer Phone Subscriber Number Group Number Insured Name Patient Relationship to Insured Coverage Start Date Coverage End Date [employer] [address] [place] [address] [phone] [id number] Cole Walker Self - patient is the insured Medical (General) History Medical History History ICD Code Arthritis Colitis Hypertension Cholesterol Neutropenia Leukopenia Surgical History Surgery Date(Month/Year) bowel resection
--- OUTSIDE RECORDS SUMMARY | 2025-03-29 08:48 | XMS_ITS | Clinical Summary ---
Author Organization [facility] Address [address] [place] [address] Care Team Providers Care Sales Trainee Name Role Phone Unavailable Primary Care Provider [...]
== END 2025-03-29 09:10 | disposition home or self-care (01) ==
LOC: HO.HMCC 08:12
PROVIDERS: PCP Nurse Practitioner Family; Visit Provider Nurse Practitioner Family
DX: R31.29 Other microscopic hematuria (principal); R80.9 Proteinuria, unspecified; E78.5 Hyperlipidemia, unspecified; E78.1 Pure hyperglyceridemia

== ENCOUNTER → 2025-03-29 08:11 | Outpatient (BNVA) | payer BC, SELFPAY | PROVIDERS: PCP Nurse Practitioner Family; Visit Provider Nurse Practitioner Family | DX: R31.29 Other microscopic hematuria (principal); R80.9 Proteinuria, unspecified; E78.5 Hyperlipidemia, unspecified; E78.1 Pure hyperglyceridemia | CPT/HCPCS: 96127 ==

== ENCOUNTER 2025-04-13 08:39 | Outpatient (REF) | payer BC, SELFPAY ==
--- NOTE | ~2025-04-13 | XR_ITS ---
EXAMINATION: XR KNEE, LEFT CLINICAL INFORMATION: M25.562 - Pain in left knee COMPARISON: None available. TECHNIQUE: Three views of the left knee. FINDINGS: No fracture, dislocation, or suspicious bone lesion. There is normal alignment. Mild to moderate tricompartmental osteoarthrosis is present, most significant in the medial and patellofemoral compartments. There is spurring of the tibial spines. There is no evidence of joint effusion. Soft tissues appear normal. XR/XR knee LT 3V IMPRESSION: 1. No acute bony or soft tissue abnormalities. No joint effusion. 2. Mild to moderate tricompartmental osteoarthritis, most significant in the medial and patellofemoral compartments. Electronically signed by: Manuel Price MD 04/13/2025 11:03 AM SHILA
--- OUTSIDE RECORDS SUMMARY | 2025-04-16 08:45 | XMS_ITS | Patient Health Record ---
Author Organization [facility] Karuna Harris Address [address] [place] [address] Care Team Providers Care County Supervisor Name Role Phone Ignacio Padilla Primary Care Provider Unav ailable Josh Billings Unavailable [phone] Allergies No Known Allergies Reason For Referral [...] W/U Status Risk Notes Problem Interstitial myositis (26720576) Interstitial myositis of left foot (M60.172) Active confirmed Plan Of Treatment Pending Test Test Name Order Date X ray : Foot, left 3V 02/12/2023,[id number] TENDON SHEATH/LIGAMENT 1 05/23/202278754,[id number] TENDON SHEATH/LIGAMENT 1 06/02/2019 Insurance Providers Payer Name Payer Address Payer Phone Subscriber Number Group Number Insured Name Patient Relationship to Insured Coverage Start Date Coverage End Date [employer] [address] [place] [address] [id number] Cole Walker Self - patient is the insured Medical (General) History Medical History History ICD Code Arthritis Colitis Hypertension Cholesterol Neutropenia Leukopenia Surgical History Surgery Date(Month/Year) bowel resection
--- OUTSIDE RECORDS SUMMARY | 2025-04-16 08:45 | XMS_ITS | Clinical Summary ---
Author Organization [facility] Address [address] [place] [address] Care Team Providers Care Direct Mail Marketer Name Role Phone Unavailable Primary Care Provider [...]
== END 2025-04-13 08:40 | disposition home or self-care (01) ==
LOC: HO.HOSX 08:39
PROVIDERS: Visit Provider Orthopaedic Surgery
DX: M17.12 Unilateral primary osteoarthritis, left knee (principal)
CPT/HCPCS: 73562

== ENCOUNTER 2025-04-13 10:01 | Outpatient (AMB) | payer BC, SELFPAY ==
--- NOTE | 2025-04-13 10:06 | MHC.OFFVIS ---
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 He describes his pain as sharp in nature. Most of the pain is along the medial and anterior aspects of his knee. The patient states that he did have a cortisone injection given into his left knee by another provider in the past which gave him only temporary relief. He denies any locking or giving way. He did recently aggravated his knee while walking his dog. He has tried Tylenol and anti-inflammatory medicines which gave him minimal relief. He has failed the last 3 months of conservative treatment. At this point his left knee pain is interfering with his activities of daily living and his ability to sleep well through the night. He has tried wearing a compressive sleeve which gives him mild relief. 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 Son No problems noted. Son No problems noted. 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, [employer] Current occupational exposures/hazards: No Cognitive needs: No Hearing needs: No Vision needs: No Physical Exam Extrem Other: Left knee examination shows a minimal effusion, mild crepitus with range of motion, pain with range of motion, no instability Results Reviewed Results Reviewed: X-rays of the patient's left knee show mild to moderate joint space narrowing most significant in the patellofemoral joint, subchondral sclerosis, no acute bony abnormalities Assessment & Plan Assessment & Plan (1) Osteoarthritis of left knee: Code(s): M17.12 - Unilateral primary osteoarthritis, left knee Category: Medical Plan Mr. Walker presents with left knee pain due to osteoarthritis. I had a lengthy discussion with the patient regarding the treatment options. The patient wishes to hold off on surgery if at all possible. I agree with this plan. I do feel that the patient would benefit from a viscosupplementation injection, such as Durolane,. The patient wishes to think things over. If he decides to proceed with the injection we will check with his insurance company for approval. Feel free to call me at any time should questions regarding his orthopedic management arise. I spent 21 minutes in reviewing the patient's records and imaging studies, seeing the patient and documenting in the medical record. Orders: Orders XR knee LT 3V Today M25.562 - Pain in left knee Coding Level of Care Code New Pt Level 3 (11425) Add On Problem Visit Only Diagnoses Osteoarthritis of left knee M17.12
--- OUTSIDE RECORDS SUMMARY | 2025-04-13 13:08 | XMS_ITS | Patient Health Record ---
Author Organization [facility] Karuna Harris Address [address] [place] [address] Care Team Providers Care Anode Worker Name Role Phone Ignacio Padilla Primary Care Provider Unav ailable Josh Billings Unavailable [phone] Allergies No Known Allergies Reason For Referral [...] W/U Status Risk Notes Problem Interstitial myositis (91922761) Interstitial myositis of left foot (M60.172) Active confirmed Plan Of Treatment Pending Test Test Name Order Date X ray : Foot, left 3V 02/12/2023,[id number] TENDON SHEATH/LIGAMENT 1 05/23/202274078,[id number] TENDON SHEATH/LIGAMENT 1 06/02/2019 Insurance Providers Payer Name Payer Address Payer Phone Subscriber Number Group Number Insured Name Patient Relationship to Insured Coverage Start Date Coverage End Date [employer] [address] [place] [address] [id number] Cole Walker Self - patient is the insured Medical (General) History Medical History History ICD Code Arthritis Colitis Hypertension Cholesterol Neutropenia Leukopenia Surgical History Surgery Date(Month/Year) bowel resection
--- OUTSIDE RECORDS SUMMARY | 2025-04-13 13:08 | XMS_ITS | Clinical Summary ---
Author Organization [facility] Address [address] [place] [address] Care Team Providers Care Vat Overhauler Name Role Phone Unavailable Primary Care Provider [...]
== END 2025-04-13 10:32 | disposition home or self-care (01) ==
LOC: HO.HOS 10:02
PROVIDERS: PCP Nurse Practitioner Family; Visit Provider Orthopaedic Surgery
DX: M17.12 Unilateral primary osteoarthritis, left knee (principal)
CPT/HCPCS: 99203

== ENCOUNTER → 2025-04-13 10:07 | Outpatient (BNV) | payer BC, SELFPAY | PROVIDERS: Visit Provider Radiology Diagnostic Radiology | DX: M17.12 Unilateral primary osteoarthritis, left knee (principal) | CPT/HCPCS: 73562 ==